=== PATIENT | male | born 1975 | race Caucasian/White ===

== ENCOUNTER 2017-06-01 12:10 | Inpatient (IN) | payer SELFPAY ==
[~2017-06-01] VITALS: Ht 182.9 cm; Wt 145.0 kg
[2017-06-01] VITALS (7 sets, daily range): BP systolic 145–175; BP diastolic 76–80; PULSE 95–118; RESP 18–24; TEMP 98.3–98.7; O2SAT 97–99
--- NOTE | 2017-06-01 12:25 | PD ---
Physical Exam Date Seen by Provider: Jun 01, 2017 Time Seen by Provider: 12:17 Narrative 42-year-old male recently moved here 3 Weeks ago for a while with partially [address] Patient has had gradually worsening bilateral lower extremity pain and swelling as well as increased shortness of breath. Patient is currently been taking Lasix 40 mg twice a day for the past several days without improvement. She has history of 2 blood clots in the past 3 years, both treated for 6 months with Xeralto. Patient denies chest pain, but is having clear productive cough. Patient is worse at night with orthopnea. Patient denies fever, chills, nausea, vomiting, heartburn. No previous history of cardiac issues in the past. Vital signs are reviewed. Patient is awaiting bed placement. Data Data Last Documented VS Vital Signs Date Time Temp Pulse Resp B/P (MAP) Pulse Ox O2 Delivery O2 Flow Rate FiO2 06/01/17 12:12 98.5 118 24 175/80 (111) 99 Room Air [facility] Medical Record Reviewed: Yes Supervised Visit with EMORY: Yes Condition: Stable Nathaniel Cortes Jun 01, 2017 12:25
[2017-06-01] MEDS ORDERED: FUROSEMIDE 40 MG/4 ML VIAL IV PUSH ONE (12:45)
[2017-06-01 13:04] LABS: AUTOMATED NEUTROPHIL # 5.1 TH/MM3 (1.8-7.7); BASOPHIL # 0.1 TH/MM3 (0-0.2); BASOPHIL % 0.7 % (0.0-2.0); EOSINOPHIL # 0.3 TH/MM3 (0-0.4); EOSINOPHIL % 3.5 % (0.0-4.0); HEMATOCRIT 25.7 % (39.0-51.0); HEMO FLAGS DIFF FINAL; LYMPH % 19.4 % (9.0-44.0); LYMPHOCYTE # 1.5 TH/MM3 (1.0-4.8); MEAN CELL VOLUME 59.9 FL (80.0-100.0); MEAN CORPUSCULAR HEMOGLOBIN 17.7 PG (27.0-34.0); NEUT % 67.4 % (16.0-70.0); PLATELET COUNT 310 TH/MM3 (150-450); RED BLOOD COUNT 4.29 MIL/MM3 (4.50-5.90); RED CELL DISTRIBUTION WIDTH 22.1 % (11.6-17.2); WHITE BLOOD COUNT 7.5 TH/MM3 (4.0-11.0)
[2017-06-01 13:07] LABS: APTT (PATIENT) 25.7 SEC (24.3-30.1); PROTHROMBIN TIME - PATIENT 11.3 SEC (9.8-11.6)
[2017-06-01 13:08] LABS: MEAN CORPUSCULAR HGB CONC 29.5 % (32.0-36.0)
[2017-06-01 13:16] LABS: ALT (GPT) 41 U/L (12-78); ANION GAP 7 MEQ/L (5-15); AST (GOT) 40 U/L (15-37); BICARBONATE 24.3 MEQ/L (21.0-32.0); BLOOD UREA NITROGEN 7 MG/DL (7-18); CHLORIDE 105 MEQ/L (98-107); GLOMERULAR FILTRATION RATE 92 ML/MIN (>89); MAGNESIUM 2.5 MG/DL (1.5-2.5); POTASSIUM 3.6 MEQ/L (3.5-5.1); SODIUM (NA) 136 MEQ/L (136-145)
[2017-06-01 13:21] LABS: ALKALINE PHOSPHATASE 97 U/L (45-117); TOTAL BILIRUBIN ADULT 0.8 MG/DL (0.2-1.0)
[2017-06-01 13:22] LABS: CREATINE KINASE 84 U/L (39-308)
--- NOTE | 2017-06-01 13:42 | RADRPT ---
EXAM DATE/TIME: 06/01/2017 12:47 [facility] COMPARISON: No previous studies available for comparison. INDICATIONS : Swelling bilateral legs. MEDICAL HISTORY : Deep venous thrombosis. Alcohol abuse. Bilateral leg swelling. SURGICAL HISTORY : Bariatric surgery. ENCOUNTER: Initial ACUITY: 1 month PAIN SCORE: 1/10 LOCATION: Bilateral legs. TECHNIQUE: Venous ultrasound of the left and right leg was performed from the inguinal ligament to the proximal calf. Real-time, color Doppler and spectral tracing, compression and augmentation techniques were us ed. FINDINGS: RIGHT LEG: There is normal compressibility of the deep venous system from the inguinal region to the proximal ca lf. No echogenic clot is seen in the lumen of the common femoral, femoral, popliteal, and posterior tibial veins. There is a normal response of the venous system to proximal and distal augmentation an d respiration. LEFT LEG: There is normal compressibility of the deep venous system from the inguinal region to the proximal ca lf. No echogenic clot is seen in the lumen of the common femoral, femoral, popliteal, and posterior tibial veins. There is a normal response of the venous system to proximal and distal augmentation an d respiration. There is subcutaneous edema in the lower extremities. CONCLUSION: No DVT is identified within either lower extremity. Navneet Kaur MD on June 01, 2017 at 13:40 Board Certified Radiologist. This report was verified electronically.
--- NOTE | 2017-06-01 13:56 | RADRPT ---
EXAM DATE/TIME: 06/01/2017 13:18 [facility] COMPARISON: No previous studies available for comparison. INDICATIONS : Lower extremity swelling for 1 month with a wet cough for 3 weeks. MEDICAL HISTORY : None. SURGICAL HISTORY : None. ENCOUNTER: Initial ACUITY: 1 month PAIN SCORE: 0/10 LOCATION: Bilateral chest FINDINGS: Portable AP view of the chest demonstrates a normal-sized cardiac silhouette. No effusion, consolidat ion, or pneumothorax is visualized. The bones and soft tissues demonstrate no acute abnormality. Ther e is mild atelectasis at the lung bases. CONCLUSION: Mild atelectasis at the lung bases. Otherwise, no acute cardiopulmonary abnormality is identified. Navneet Kaur MD on June 01, 2017 at 13:51 Board Certified Radiologist. This report was verified electronically.
--- NOTE | 2017-06-01 14:02 | PD ---
HPI Chief Complaint: Edema Time Seen by Provider: 12:25 Travel History International Travel<30 days: No Contact w/Intl Traveler<30days: No Traveled to known affect area: No History of Present Illness HPI 42-year-old male that presents to the ED for evaluation of lower leg edema and orthopnea. Per patient she's had this for about 3 weeks now. Per patient he does have a history of blood clots especially the right leg. He is to be Xarelto for it but has been off of it for about almost a year stop by his doctor. He states that the swelling and the shortness of breath is her about 3 weeks ago when he started to move here. [place] Per patient he did a 14 [address] ride here. Per patient ever since she' s been having more shortness of breath. He always has some lower leg swelling but this is more severe and painful. He denies any chest pain but states that he gets short of breath especially with exertion going up a sterile flights. He does have a chronic history of daily alcohol use as well as smoking. He states that he takes aspirin on occasion. Takes no other medications. He has been taking Lasix for the past 3 days trying to see if this will help with his symptoms. This does not help per patient. He denies any history of CHF or heart disease. No allergies to medication. Per patient the discomfort to the legs is 7 out of 10. She states that even walking a long distance causes a lot of shortness of breath for him. PFSH Past Medical History Medical other: Yes (dvt right leg 2014) Past Surgical History Abdominal Surgery: Yes (bariatric surgery 2001) Social History Alcohol Use: Yes (12-18 bottles a day beer ) Tobacco Use: Yes (1 to 1 and a half pack of cig ) Substance Use: No Allergies-Medications (Allergen,Severity, Reaction): Coded Allergies: No Known Allergies (Unverified , 06/01/17) Reported Meds & Prescriptions Reported Meds & Active Scripts Active No Active Prescriptions or Reported Medications Review of Systems Except as stated in HPI: all other systems reviewed are Neg Physical Exam Narrative GENERAL: SKIN: Warm and dry. HEAD: Atraumatic. Normocephalic. EYES: Pupils equal and round. No scleral icterus. No injection or drainage. ENT: No nasal bleeding or discharge. Mucous membranes pink and moist. Tongue is midline, No uvula deviation. NECK: Trachea midline. No JVD. CARDIOVASCULAR: Regular rate and rhythm. No murmurs, S3, S4. RESPIRATORY: No accessory muscle use. Clear to auscultation. Breath sounds equal bilaterally. GASTROINTESTINAL: Abdomen soft, non-tender, nondistended. Hepatic and splenic margins not palpable. MUSCULOSKELETAL: Extremities without clubbing, cyanosis, or edema. No obvious deformities. Full range of motion of the upper and lower extremities bilaterally. Patient does have 2+ pitting edema in the lower extremities. Right worse than left. Slightly warm to touch with some erythema noted on the right leg. NEUROLOGICAL: Awake and alert. No obvious cranial nerve deficits. Motor grossly within normal limits. Five out of 5 muscle strength in the arms and legs. Normal speech. PSYCHIATRIC: Appropriate mood and affect; insight and judgment normal. Data Data Last Documented VS Vital Signs Date Time Temp Pulse Resp B/P (MAP) Pulse Ox O2 Delivery O2 Flow Rate FiO2 06/01/17 12:37 (111) Room Air 06/01/17 12:33 116 23 99 06/01/17 12:12 98.5 Orders Orders Electrocardiogram (06/01/17 12:25) Complete Blood Count With Diff (06/01/17 12:25) Comprehensive Metabolic Panel (06/01/17 12:25) Ckmb (Isoenzyme) Profile (06/01/17 12:25) Troponin I (06/01/17 12:25) B-Type Natriuretic Peptide (06/01/17 12:25) Prothrombin Time / Inr (Pt) (06/01/17 12:25) Act Partial Throm Time (Ptt) (06/01/17 12:25) Magnesium (Mg) (06/01/17 12:25) Chest, Single Ap (06/01/17 12:25) Iv Access Insert/Monitor (06/01/17 12:25) Ecg Monitoring (06/01/17 12:25) Oximetry (06/01/17 12:25) Ct Pulmonary Angiogram (06/01/17 ) Us Leg Venous Doppler Bilat (06/01/17 ) Furosemide Inj (Lasix Inj) (06/01/17 12:45) Ct Abd/Pel W Iv Contrast(Rout) (06/01/17 ) Type And Screen (06/01/17 14:08) Iohexol 350 Inj (Omnipaque 350 Inj) (06/01/17 14:51) Sodium Chloride 0.9... W/Pantoprazole In (06/01/17 16:13) Sodium Chlorid 0.9% 500 Ml Inj (Ns 500 M (06/01/17 15:30) Admit Order (Ed Use Only) (06/01/17 16:03) Labs Laboratory Tests Test 06/01/17 12:45 White Blood Count 7.5 TH/MM3 Red Blood Count 4.29 MIL/MM3 Hemoglobin 7.6 GM/DL Hematocrit 25.7 % Mean Corpuscular Volume 59.9 FL Mean Corpuscular Hemoglobin 17.7 PG Mean Corpuscular Hemoglobin Concent 29.5 % Red Cell Distribution Width 22.1 % Platelet Count 310 TH/MM3 Mean Platelet Volume 8.7 FL Neutrophils (%) (Auto) 67.4 % Lymphocytes (%) (Auto) 19.4 % Monocytes (%) (Auto) 9.0 % Eosinophils (%) (Auto) 3.5 % Basophils (%) (Auto) 0.7 % Neutrophils # (Auto) 5.1 TH/MM3 Lymphocytes # (Auto) 1.5 TH/MM3 Monocytes # (Auto) 0.7 TH/MM3 Eosinophils # (Auto) 0.3 TH/MM3 Basophils # (Auto) 0.1 TH/MM3 CBC Comment DIFF FINAL Differential Comment Prothrombin Time 11.3 SEC Prothromb Time International Ratio 1.0 RATIO Activated Partial Thromboplast Time 25.7 SEC Blood Urea Nitrogen 7 MG/DL Creatinine 0.90 MG/DL Random Glucose 113 MG/DL Total Protein 7.2 GM/DL Albumin 3.4 GM/DL Calcium Level 8.7 MG/DL Magnesium Level 2.5 MG/DL Alkaline Phosphatase 97 U/L Aspartate Amino Transf (AST/SGOT) 40 U/L Alanine Aminotransferase (ALT/SGPT) 41 U/L Total Bilirubin 0.8 MG/DL Sodium Level 136 MEQ/L Potassium Level 3.6 MEQ/L Chloride Level 105 MEQ/L Carbon Dioxide Level 24.3 MEQ/L Anion Gap 7 MEQ/L Estimat Glomerular Filtration Rate 92 ML/MIN Total Creatine Kinase 84 U/L Troponin I LESS THAN 0.02 NG/ML B-Type Natriuretic Peptide 19 PG/ML MDM Medical Decision Making Medical Screen Exam Complete: Yes Emergency Medical Condition: Yes Medical Record Reviewed: Yes Interpretation(s) CBC & BMP Diagram 06/01/17 12:45 Total Protein 7.2, Albumin 3.4, Calcium Level 8.7, Magnesium Level 2.5, Alkaline Phosphatase 97, Aspartate Amino Transf (AST/SGOT) 40 H, Alanine Aminotransferase (ALT/SGPT) 41, Total Bilirubin 0.8 Last Impressions Chest X-Ray 06/01/17 1225 Signed Impressions: Service Date/Time: Thursday, June 01, 2017 13:18 - CONCLUSION: Mild atelectasis at the lung bases. Otherwise, no acute cardiopulmonary abnormality is identified. Navneet Kaur MD Lower Extremity Ultrasound 06/01/17 0000 Signed Impressions: Service Date/Time: Thursday, June 01, 2017 12:47 - CONCLUSION: No DVT is identified within either lower extremity. Navneet Kaur MD CT Angiography 06/01/17 0000 Signed Impressions: Service Date/Time: Thursday, June 01, 2017 14:23 - CONCLUSION: 1. Suboptimal opacification of pulmonary arteries with no evidence of embolism. 2. Subtle areas of patchy opacification in the right middle lobe and insula with subtle areas of bronchiectasis. These findings are of indeterminate age and could be chronic. Randal Nix MD Differential Diagnosis GI bleed versus shortness of breath versus COPD versus CHF versus pedal edema versus DVT versus PE versus bronchitis versus pneumonia Narrative Course 42-year-old male that presents to the ED for evaluation of shortness of breath with exertion as well as lower leg edema. Patient was properly examined and was found to have signs and symptoms which appear to be more consistent with possible CHF versus DVT. Labs were ordered as well as imaging. Labs and imaging were essentially unremarkable other than for severe anemia. I did a Hemoccult on the patient he was possibly. He does have a history of peptic ulcer disease. He is still somewhat symptomatic and shortness of breath with tachycardia. Case was discussed in my attending Dr. Palomo who recommends admission and further evaluation. Patient was started on Protonix drip. This was discussed with the patient and agrees with plan. Patient will be admitted to the resident team after I spoke with Dr. Lynne who agrees to admission. [facility] Point of Care Internal Pos. & Neg. Controls: Passed Fecal Specimen Occult Blood: Positive Sepsis Criteria SIRS Criteria (2 or more): Heart rate over 90 Diagnosis Primary Impression: GI bleed Qualified Codes: K92.2 - Gastrointestinal hemorrhage, unspecified Additional Impressions: Anemia Qualified Codes: D64.9 - Anemia, unspecified Pedal edema Shortness of breath on exertion Admitting Information Admitting Physician Requests: Admit Scripts No Active Prescriptions or Reported Meds Condition: Yaya Vuong Jun 01, 2017 14:02
[2017-06-01] MEDS ORDERED: IOHEXOL 350 MG/ML 10 ML VIAL (for RAD DIAG) IV PUSH ONE (14:51)
--- NOTE | 2017-06-01 14:59 | RADRPT ---
EXAM DATE/TIME: 06/01/2017 14:23 [facility] COMPARISON: No previous studies available for comparison. INDICATIONS : Shortness of breath. IV CONTRAST: 100 cc Omnipaque 350 (iohexol) IV ; Cumulative dose for multiple exams. RADIATION DOSE: 41.34 CTDIvol (mGy) ; Patient body habitus MEDICAL HISTORY : Deep venous thrombosis. SURGICAL HISTORY : None. ENCOUNTER: Initial ACUITY: 1 day PAIN SCALE: 5/10 LOCATION: Bilateral chest TECHNIQUE: Volumetric scanning of the chest was performed using a pulmonary embolism protocol MIP images were re constructed. Using automated exposure control and adjustment of the mA and/or kV according to patien t size, radiation dose was kept as low as reasonably achievable to obtain optimal diagnostic quality images. DICOM format image data is available electronically for review and comparison. Follow-up recommendations for detected pulmonary nodules are based at a minimum on nodule size and pa tient risk factors according to Fleischner Society Guidelines. FINDINGS: PULMONARY ARTERIES: There is suboptimal opacification of the pulmonary arteries. No filling defects are seen in the pulmo nary arteries through the segmental level. LUNGS: There is no consolidation or pneumothorax . There are subtle areas of patchy opacification in the rig ht middle lobe and lingula. There is subtle apparent bronchiectasis. No concerning pulmonary nodule i s visualized. PLEURAE: There is no pleural thickening or pleural effusion. MEDIASTINUM: There is good visualization of the great vessels of the middle mediastinum. No evidence of mediastin al or hilar adenopathy/mass. MUSCULOSKELETAL: Within normal limits for patient age. MISCELLANEOUS: The visualized upper abdominal organs demonstrate no acute abnormality. Postoperative changes are not ed along the stomach. CONCLUSION: 1. Suboptimal opacification of pulmonary arteries with no evidence of embolism. 2. Subtle areas of patchy opacification in the right middle lobe and insula with subtle areas of bron chiectasis. These findings are of indeterminate age and could be chronic. Randal Nix MD on June 01, 2017 at 14:54 Board Certified Radiologist. This report was verified electronically.
--- NOTE | 2017-06-01 15:24 | RADRPT ---
EXAM DATE/TIME: 06/01/2017 14:27 [facility] COMPARISON: No previous studies available for comparison. INDICATIONS : Abdomen swelling; distention, abdomen pain. IV CONTRAST: 100 cc Omnipaque 350 (iohexol) IV ; Cumulative dose for multiple exams. ORAL CONTRAST: No oral contrast ingested. RADIATION DOSE: 35.19 CTDIvol (mGy) MEDICAL HISTORY : Deep venous thrombosis. SURGICAL HISTORY : None. ENCOUNTER: Initial ACUITY: 1 day PAIN SCALE: 5/10 LOCATION: Bilateral abdomen TECHNIQUE: Volumetric scanning of the abdomen and pelvis was performed. Using automated exposure control and ad justment of the mA and/or kV according to patient size, radiation dose was kept as low as reasonably achievable to obtain optimal diagnostic quality images. DICOM format image data is available electro nically for review and comparison. FINDINGS: LOWER LUNGS: The visualized lower lungs are clear. LIVER: Homogeneous density without lesion. There is no dilation of the biliary tree. No calcified gallston es. There is moderate hepatic steatosis. SPLEEN: Normal size without lesion. PANCREAS: Within normal limits. KIDNEYS: Normal in size and shape. There is no mass, stone or hydronephrosis. ADRENAL GLANDS: Within normal limits. VASCULAR: There is no aortic aneurysm. BOWEL/MESENTERY: Postoperative changes are noted involving the stomach with multiple clips and marcelo. There are mult iple loops of nondilated air-containing small bowel several small air-fluid levels. There is no focal inflammatory change or wall thickening. The colon is unremarkable in appearance. There is no ascites . There is no free intraperitoneal air or fluid. ABDOMINAL WALL: Within normal limits. RETROPERITONEUM: There is no lymphadenopathy. BLADDER: No wall thickening or mass. REPRODUCTIVE: Within normal limits. INGUINAL: There is no lymphadenopathy or hernia. MUSCULOSKELETAL: Within normal limits for patient age. CONCLUSION: 1. There is no ascites. 2. Postoperative changes involving the stomach. There is a nonspecific, nonobstructive bowel gas mehran na which may represent an ileus or gastroenteritis. 3. Moderate hepatic steatosis. Randal Nix MD on June 01, 2017 at 15:20 Board Certified Radiologist. This report was verified electronically.
[2017-06-01] MEDS ORDERED: SODIUM CHLORID 0.9% 500 ML INJ 500 ML IV ONE (15:30)
--- NOTE | 2017-06-01 16:43 | HHI.HP ---
HPI Service Family Medicine Primary Care Physician Non-Staff Admission Diagnosis GI bleed with symptomatic anemia, edema, SOB Diagnoses: International Travel<30 Days: No Contact w/Intl Traveler<30days: No Known Affected Area: No History of Present Illness Mr. Viera is a 42 yo M with PMH of PUD with upper GI bleed (11+ years ago), h /o DVT in R leg x2 (1.5 and 3 years ago - was treated for 6 months on Xarelto for each, not anticoagulated currently) who presented to the ED with 1 month history of progressive BLE edema, SOB and cough. Patient states that roughly 1 month ago he began to have BLE swelling and shortly after began to have SOB, worse when laying flat. He began to have a cough with a clear, thick sputum as well. Patient has been inactive recently due to losing his job, GF, and home in [place] and he has mainly been sedentary and drinking 12-18 beers daily. His symptoms worsened after a [address] from [place] to [place], where he and his daughter are temporarily moving in with his sister until he can find a job/ home. Patient states he had Lasix 40mg at home from a very old prescription and tried taking them recently BID but did not see much improvement of his symptoms. He states he has never had an echo done but had multiple CXR's in the past due to pleurisy. Patient denies fevers, chills, CP. In the ED patient was found to be anemic (H/H 7.6/25.7) and Hemoccult positive. Patient states that roughly 11-12 years ago he had an upper GI bleed that lead to hematemesis and had EGD discovering PUD. He had been taking Prilosec daily but has recently been taking it as little as once a week since he no longer has a job and didn't feel he could afford it. Patient also had gastric bypass surgery roughly 15 years ago. He endorses having hemorrhoids. He denies hematemesis, epigastric pain, black/bloody stools. (Loi Lynne MD R1) Review of Systems Constitutional: DENIES: Fever, Chills, Change in appetite Eyes: DENIES: Blurred vision, Diplopia Ears, nose, mouth, throat: COMPLAINS OF: Running Nose (mainly post nasal drip) , DENIES: Throat pain Respiratory: COMPLAINS OF: Cough (with postnasal drip, also chronic cough from smoking), Sputum production (clear), Shortness of breath, DENIES: Wheezing Cardiovascular: COMPLAINS OF: Lower Extremity Edema, Orthopnea, DENIES: Chest pain, Palpitations Gastrointestinal: DENIES: Abdominal pain, Black stools, Bloody stools, Constipation, Diarrhea, Nausea, Vomiting Genitourinary: DENIES: Hematuria, Dysuria Integumentary: DENIES: Rash Hematologic/lymphatic: DENIES: Lymphadenopathy Neurologic: DENIES: Headache Psychiatric: DENIES: Confusion (Loi Lynne MD R1) Past Family Social History Past Medical History PUD - UGI bleed 11-12 years ago DVT in R leg x2 (1.5 and 3 years ago, both treated with 6 month course of Xarelto) Past Surgical History Bariatric surgery 11-12 years ago - gastric bypass [place] teeth removed 23 years ago Reported Medications Reported Meds & Active Scripts Active No Active Prescriptions or Reported Medications (Loi Lynne MD R1) Allergies: Coded Allergies: No Known Allergies (Unverified , 06/01/17) Family History Father - of possible blood clots Mother - HTN Social History In the process of moving to [place], looking for job, a lot of stress after losing job/home/GF in [place]. He and his daughter moving in with sister until he finds a job/home Been inactive for the past several months Alcohol 12-18 beers daily, has had trembling in the past when abstaining Tobacco 1-2 ppd for roughly 20 years No illicit drug use (Loi Lynne MD R1) Physical Exam Vital Signs Vital Signs Date Time Temp Pulse Resp B/P (MAP) Pulse Ox O2 Delivery O2 Flow Rate FiO2 06/01/17 12:37 (111) Room Air 06/01/17 12:33 116 23 99 Room Air 06/01/17 12:12 98.5 118 24 175/80 (111) 99 Room Air Physical Exam GENERAL: This is a well-nourished, well-developed obese patient sitting upright on hospital bed in [facility] SKIN: BLE are erythematous from the knee to ankle. HEAD: Atraumatic. Normocephalic. No temporal or scalp tenderness. EYES: Pupils equal round and reactive. Extraocular motions intact. No scleral icterus. No injection or drainage. ENT: Nose without bleeding, purulent drainage or septal hematoma. Throat without erythema, tonsillar hypertrophy or exudate. Uvula midline. Airway patent. NECK: Trachea midline. No JVD or lymphadenopathy. Supple, nontender, no meningeal signs. CARDIOVASCULAR: Regular rate and rhythm without murmurs, gallops, or rubs. RESPIRATORY: Occasional wheezing appreciated bilaterally. No crackles noted. Good air movement bilaterally GASTROINTESTINAL: Abdomen soft, non-tender, nondistended. No hepato-splenomegaly , or palpable masses. No guarding. MUSCULOSKELETAL: BLE with 1+ pitting edema to level of distal knee. Patient endorses pain with palpation along tibial plateau bilaterally. Calf tenderness appreciated bilaterally. Negative Homans sign bilaterally. NEUROLOGICAL: Awake and alert. Cranial nerves II through XII grossly intact. Motor and sensory grossly within normal limits. Normal speech. Laboratory Laboratory Tests Test 06/01/17 12:45 White Blood Count 7.5 Red Blood Count 4.29 Hemoglobin 7.6 Hematocrit 25.7 Mean Corpuscular Volume 59.9 Mean Corpuscular Hemoglobin 17.7 Mean Corpuscular Hemoglobin Concent 29.5 Red Cell Distribution Width 22.1 Platelet Count 310 Mean Platelet Volume 8.7 Neutrophils (%) (Auto) 67.4 Lymphocytes (%) (Auto) 19.4 Monocytes (%) (Auto) 9.0 Eosinophils (%) (Auto) 3.5 Basophils (%) (Auto) 0.7 Neutrophils # (Auto) 5.1 Lymphocytes # (Auto) 1.5 Monocytes # (Auto) 0.7 Eosinophils # (Auto) 0.3 Basophils # (Auto) 0.1 CBC Comment DIFF FINAL Differential Comment Prothrombin Time 11.3 Prothromb Time International Ratio 1.0 Activated Partial Thromboplast Time 25.7 Blood Urea Nitrogen 7 Creatinine 0.90 Random Glucose 113 Total Protein 7.2 Albumin 3.4 Calcium Level 8.7 Magnesium Level 2.5 Alkaline Phosphatase 97 Aspartate Amino Transf (AST/SGOT) 40 Alanine Aminotransferase (ALT/SGPT) 41 Total Bilirubin 0.8 Sodium Level 136 Potassium Level 3.6 Chloride Level 105 Carbon Dioxide Level 24.3 Anion Gap 7 Estimat Glomerular Filtration Rate 92 Total Creatine Kinase 84 Troponin I LESS THAN 0.02 B-Type Natriuretic Peptide 19 (Loi Lynne MD R1) Result Diagram: 06/01/17 1245 06/01/17 1245 Caprini VTE Risk Assessment Caprini VTE Risk Assessment: Mod/High Risk (score >= 2) VTE Pharm Contraindication: Active bleeding (monet) Caprini Risk Assessment Model Point Value = 1 Point Value = 2 Point Value = 3 Point Value = 5 Age 41-60 Minor surgery BMI > 25 kg/m2 Swollen legs Varicose veins or History of unexplained or recurrent spontaneous Oral contraceptives or hormone replacement Sepsis (< 1 month) Serious lung disease, including pneumonia (< 1 month) Abnormal pulmonary function Acute myocardial infarction Congestive heart failure (< 1 month) History of inflammatory bowel disease Medical patient at bed rest Age 61-74 Arthroscopic surgery Major open surgery (> 45 min) Laparoscopic surgery (> 45 min) Malignancy Confined to bed (> 72 hours) Immobilizing plaster cast Central venous access Age >= 75 History of VTE Family history of VTE Factor V Leiden Prothrombin 32504B Lupus anticoagulant Anticardiolipin antibodies Elevated serum homocysteine Heparin-induced thrombocytopenia Other congenital or acquired thrombophilia Stroke (< 1 month) Elective arthroplasty Hip, pelvis, or leg fracture Acute spinal cord injury (< 1 month) Prophylaxis Regimen Total Risk Factor Score Risk Level Prophylaxis Regimen 0-1 Low Early ambulation 2 Moderate Order ONE of the following: *Sequential Compression Device (SCD) *Heparin 5000 units SQ BID 3-4 Higher Order ONE of the following medications: *Heparin 5000 units SQ TID *Enoxaparin/Lovenox 40 mg SQ daily (WT < 150 kg, CrCl > 30 mL/min) *Enoxaparin/Lovenox 30 mg SQ daily (WT < 150 kg, CrCl > 10-29 mL/min) *Enoxaparin/Lovenox 30 mg SQ BID (WT < 150 kg, CrCl > 30 mL/min) AND/OR *Sequential Compression Device (SCD) 5 or more Highest Order ONE of the following medications: *Heparin 5000 units SQ TID (Preferred with Epidurals) *Enoxaparin/Lovenox 40 mg SQ daily (WT < 150 kg, CrCl > 30 mL/min) *Enoxaparin/Lovenox 30 mg SQ daily (WT < 150 kg, CrCl > 10-29 mL/min) *Enoxaparin/Lovenox 30 mg SQ BID (WT < 150 kg, CrCl > 30 mL/min) AND *Sequential Compression Device (SCD) (Loi Lynne MD R1) Assessment and Plan Assessment and Plan 42 yo M with PMH of PUD with UGI bleed in past, DVT in R leg who is presenting with 1 month history of progressing BLE edema, SOB, cough found to be anemic and Hemoccult positive on admission. GI consulted for anemia and possible GI bleed. Cardiac workup and PE ruleout ongoing Code Status full code Discussed Condition With Dr. Rush (Loi Lynne MD R1) Attending Attestation The patient has been seen and examined. The chart and all resident notes have been reviewed. I agree that inpatient care is appropriate and that a two midnight stay is expected for the reasons documented in the resident history and physical. I have discussed this with the resident and certify the resident s order for inpatient admission. (Hilda Rasheed MD) Problem List: (1) Anemia ICD Codes: D64.9 - Anemia, unspecified Status: Acute Plan: H/H on admission 7.6/25.7, Hemoccult positive Tachycardic on admission 100's-110's, patient stated he runs in the 100's often GI bleed vs side effect of chronic alcohol abuse GI consulted Will trend H/H q6hr, Type and screen ordered. Will consider transfusion if Hbg drops below 7. Treating with Ferrous Sulfate 325mg po BID NPO at midnight to prepare if GI decides to scope (2) SOB (shortness of breath) ICD Codes: R06.02 - Shortness of breath Plan: Patient reported SOB on exertion, progressive orthopnea over previous month. Smoker CHF vs PE vs ACS vs atelectasis vs pneumonia vs URI Wheezing appreciated on exam, CXR on admission showed mild atelectasis at lung bases CT chest on admission showed no evidence of embolism, subtle areas of patchy opacification in RML and insula, subtle areas of bronchiectasis of indeterminate age Lower extremity ultrasounds showed no DVT in either leg EKG on admission showed sinus tachycardia. Troponin >0.02 Echo ordered, Sputum culture/gram stain pending, will trend troponin x1 Lasix 40mg IV BID Albuterol nebs q4hr PRN, Prednisone 40mg po daily for wheezing Incentive spirometry, Acapella ordered Mucinex, Tessalon pearls ordered for cough (3) Bilateral lower extremity edema ICD Codes: R60.0 - Localized edema Plan: Venous stasis vs new onset CHF vs PE Unlikely PE as edema is bilateral, see SOB workup as above No leukocytosis or signs of cellulitis that would require antibiotics at this time (4) GI bleed ICD Codes: K92.2 - Gastrointestinal hemorrhage, unspecified Status: Acute Plan: Hemoccult positive on admission Known history of PUD with decreased compliance of Prilosec CT abdomen showed bowel gas pattern possibly representing an ileus or gastroenteritis, moderate hepatic steatosis Pantoprazole drip See anemia plan above (5) History of DVT of lower extremity ICD Codes: Z86.718 - Personal history of other venous thrombosis and embolism Plan: Known history of DVT in the past (1.5 and 3 years ago) Was treated with Xarelto for 6 months duration both times Not currently on any anticoagulation Fibrinogen, PTT, PT/INR ordered Will not anticoagulate now as patient is having an active bleed (6) Cough ICD Codes: R05 - Cough Plan: See SOB plan above (7) Alcohol abuse ICD Codes: F10.10 - Alcohol abuse, uncomplicated Plan: 12-18 beers per day History of trembles after 2 days of abstinence in the past on CIWA protocol Giving Thiamine, Folic acid, multivitamin (8) FEN Plan: Diet: NPO at midnight GI Prophylaxis: Pantoprazole DVT prophylaxis: SCDs PRN meds: Clonidine 0.1mg po q6hr PRN for SBP >180, DBP > 100 Marlyn-Colace BID PRN Zofran 4mg IV q6hr PRN (Loi Lynne MD R1) Physician Certification 2 Midnight Certification Type: Admission for Inpatient Services Order for Inpatient Services The services are ordered in accordance with Medicare regulations or non- Medicare payer requirements, as applicable. In the case of services not specified as inpatient-only, they are appropriately provided as inpatient services in accordance with the 2-midnight benchmark. Estimated LOS (days): 2 days is the estimated time the patient will need to remain in the hospital, assuming treatment plan goals are met and no additional complications. Post-Hospital Plan: Home (Loi Lynen MD R1) Problem Qualifiers (1) Anemia: Qualified Codes: D64.9 - Anemia, unspecified (2) GI bleed: Qualified Codes: K92.2 - Gastrointestinal hemorrhage, unspecified Loi Lynne MD R1 Jun 01, 2017 16:43 Hilda Rasheed MD Jun 02, 2017 16:56
[2017-06-01] MEDS: PANTOPRAZOLE INJ 80 MG in SODIUM CHLORIDE 0.9% INJ 100 ML IV SCH (16:59)
[2017-06-01] MEDS ORDERED: ONDANSETRON HCL 4 MG/2 ML VIAL IV PRN (17:00)
[2017-06-01] MEDS ORDERED: LORazepam 1 MG TAB PO PRN (17:30)
[2017-06-01] MEDS ORDERED: LORazepam 2 MG/ML VIAL IV PUSH PRN ×4 (17:30)
[2017-06-01] MEDS ORDERED: HALOPERIDOL LACTATE 5 MG/ML AMP IM PRN (17:30)
[2017-06-01] MEDS ORDERED: ENALAPRILAT 1.25 MG/ML VIAL IV PUSH PRN (17:30)
[2017-06-01] MEDS ORDERED: FLUMAZENIL 0.5 MG/5 ML VIAL IV PUSH PRN (17:30)
[2017-06-01] MEDS ORDERED: ACETAMINOPHEN 500 MG CPLT PO PRN (17:30)
[2017-06-01] MEDS ORDERED: LORazepam 2 MG TAB PO PRN (17:30)
[2017-06-01] MEDS ORDERED: cloNIDine HCL 0.1 MG TAB PO PRN (17:30)
[2017-06-01] MEDS ORDERED: BENZONATATE 100 MG CAP PO PRN (17:30)
[2017-06-01] MEDS ORDERED: RESP: ALBUTEROL 2.5 MG/3 ML NEB (PRN) NEB (17:30)
[2017-06-01] MEDS ORDERED: DOCUSATE SODIUM 50 MG/SENNA 8.6 MG TAB PO PRN (17:30)
[2017-06-01] MEDS: predniSONE 20 MG TAB PO SCH (18:33)
[2017-06-01] MEDS: FUROSEMIDE 40 MG/4 ML VIAL IVP SCH (18:33)
[2017-06-01] MEDS: THIAMINE HCL 100 MG TAB PO SCH (18:34)
[2017-06-01] MEDS: FOLIC ACID 1 MG TAB PO SCH (18:34)
[2017-06-01] MEDS: MULTIVITAMINS/MINERALS THERAPEUTIC TAB PO SCH (18:34)
[2017-06-01] MEDS ORDERED: THIAMINE INJ 100 MG in SODIUM CHLORIDE 0.9% INJ 100 ML IV SCH (19:00)
[2017-06-01] MEDS: NICOTINE 14 MG/24 HR PATCH T-DERMAL SCH (20:00)
[2017-06-01 20:17] LABS: HEMATOCRIT 25.9 % (39.0-51.0); REVIEW FLAG FINAL
[2017-06-01 20:28] LABS: MAGNESIUM 2.4 MG/DL (1.5-2.5)
[2017-06-01 20:29] LABS: ALCOHOL LESS THAN 3 MG/DL (0-5)
[2017-06-01] MEDS: REMOVE OLD PATCH T-DERMAL SCH (21:00)
[2017-06-01] MEDS: guaiFENesin E.R. 600 MG TAB PO SCH (22:19)
[2017-06-01] MEDS: FERROUS SULFATE 325 MG (65 MG ELEMENTAL IRON) TAB PO SCH (22:20)
[2017-06-02] MEDS: PANTOPRAZOLE INJ 80 MG in SODIUM CHLORIDE 0.9% INJ 100 ML IV SCH ×3 (01:58→21:59)
[2017-06-02 02:20] LABS: HEMATOCRIT 24.8 % (39.0-51.0); REVIEW FLAG FINAL
[2017-06-02 03:47] LABS: ANION GAP 5 MEQ/L (5-15); BICARBONATE 26.5 MEQ/L (21.0-32.0); BLOOD UREA NITROGEN 10 MG/DL (7-18); CHLORIDE 108 MEQ/L (98-107); POTASSIUM 4.1 MEQ/L (3.5-5.1); SODIUM (NA) 139 MEQ/L (136-145)
[2017-06-02 03:51] LABS: ALKALINE PHOSPHATASE 90 U/L (45-117); ALT (GPT) 36 U/L (12-78); AST (GOT) 34 U/L (15-37); GLOMERULAR FILTRATION RATE 87 ML/MIN (>89); TOTAL BILIRUBIN ADULT 0.8 MG/DL (0.2-1.0)
[2017-06-02 04:00] VITALS: BP 145/71; PULSE 88; RESP 18; TEMP 98.2; O2SAT 97
[2017-06-02 06:34] LABS: AUTOMATED NEUTROPHIL # 6.2 TH/MM3 (1.8-7.7); BASOPHIL % 0.3 % (0.0-2.0); EOSINOPHIL % 0.2 % (0.0-4.0); HEMATOCRIT 25.3 % (39.0-51.0); HEMO FLAGS DIFF FINAL; LYMPH % 13.3 % (9.0-44.0); MEAN CELL VOLUME 60.7 FL (80.0-100.0); MEAN CORPUSCULAR HEMOGLOBIN 17.7 PG (27.0-34.0); NEUT % 81.2 % (16.0-70.0); PLATELET COUNT 309 TH/MM3 (150-450); RED BLOOD COUNT 4.17 MIL/MM3 (4.50-5.90); WHITE BLOOD COUNT 7.7 TH/MM3 (4.0-11.0)
[2017-06-02 07:02] LABS: MEAN CORPUSCULAR HGB CONC 29.2 % (32.0-36.0)
[2017-06-02 08:00] VITALS: BP 138/66; PULSE 85; PULSE 91; RESP 18; TEMP 98.7; O2SAT 95
[2017-06-02 08:21] LABS: HEMATOCRIT 25.2 % (39.0-51.0); REVIEW FLAG FINAL
[2017-06-02 08:27] VITALS: O2SAT 99
[2017-06-02] MEDS: THIAMINE HCL 100 MG TAB PO SCH (09:00)
[2017-06-02] MEDS: NICOTINE 14 MG/24 HR PATCH T-DERMAL SCH (09:00)
[2017-06-02] MEDS: MULTIVITAMINS/MINERALS THERAPEUTIC TAB PO SCH (09:58)
[2017-06-02] MEDS: guaiFENesin E.R. 600 MG TAB PO SCH ×2 (09:58→21:58)
[2017-06-02] MEDS: FUROSEMIDE 40 MG/4 ML VIAL IVP SCH ×2 (09:58→17:31)
[2017-06-02] MEDS: predniSONE 20 MG TAB PO SCH (09:59)
[2017-06-02] MEDS: FERROUS SULFATE 325 MG (65 MG ELEMENTAL IRON) TAB PO SCH ×2 (09:59→21:58)
[2017-06-02] MEDS: FOLIC ACID 1 MG TAB PO SCH (09:59)
--- NOTE | 2017-06-02 11:02 | HHI.FPPN ---
Subjective Subjective Patient seen and examined with the resident team. Case reviewed and discussed Please refer to resident H&P for further details regarding HPI, ROS, PMH, SurgHx , SocHx and FH In summary, patient is a 42yoM presenting with LE edema and shortness of breath. Patient has recently moved to the area from [place]. Patient has a known history of DVT x 2 as well as PUD with GIB. He continues to have regular alcohol use. Denies chest pain. Patient seen in his hospital bed, reports black stools overnight Hospital Objective Objective Last Impressions Chest X-Ray 06/01/17 1225 Signed Impressions: Service Date/Time: Thursday, June 01, 2017 13:18 - CONCLUSION: Mild atelectasis at the lung bases. Otherwise, no acute cardiopulmonary abnormality is identified. Navneet Kaur MD Lower Extremity Ultrasound 06/01/17 0000 Signed Impressions: Service Date/Time: Thursday, June 01, 2017 12:47 - CONCLUSION: No DVT is identified within either lower extremity. Navneet Kaur MD CT Angiography 06/01/17 0000 Signed Impressions: Service Date/Time: Thursday, June 01, 2017 14:23 - CONCLUSION: 1. Suboptimal opacification of pulmonary arteries with no evidence of embolism. 2. Subtle areas of patchy opacification in the right middle lobe and insula with subtle areas of bronchiectasis. These findings are of indeterminate age and could be chronic. Randal Nix MD Abdomen/Pelvis CT 06/01/17 0000 Signed Impressions: Service Date/Time: Thursday, June 01, 2017 14:27 - CONCLUSION: 1. There is no ascites. 2. Postoperative changes involving the stomach. There is a nonspecific, nonobstructive bowel gas pattern which may represent an ileus or gastroenteritis. 3. Moderate hepatic steatosis. Randal Nix MD Laboratory Tests - Abnormals Test 06/01/17 12:45 06/01/17 19:45 06/01/17 19:55 06/02/17 01:59 Red Blood Count 4.29 MIL/MM3 Hemoglobin 7.6 GM/DL 7.3 GM/DL 7.4 GM/DL Hematocrit 25.7 % 25.9 % 24.8 % Mean Corpuscular Volume 59.9 FL Mean Corpuscular Hemoglobin 17.7 PG Mean Corpuscular Hemoglobin Concent 29.5 % Red Cell Distribution Width 22.1 % Monocytes (%) (Auto) 9.0 % Random Glucose 113 MG/DL 112 MG/DL Aspartate Amino Transf (AST/SGOT) 40 U/L Troponin I LESS THAN 0.02 NG/ML LESS THAN 0.02 NG/ML Fibrinogen 392 mg/dL Chloride Level 108 MEQ/L Estimat Glomerular Filtration Rate 87 ML/MIN Test 06/02/17 06:00 06/02/17 07:49 Red Blood Count 4.17 MIL/MM3 Hemoglobin 7.4 GM/DL 7.3 GM/DL Hematocrit 25.3 % 25.2 % Mean Corpuscular Volume 60.7 FL Mean Corpuscular Hemoglobin 17.7 PG Mean Corpuscular Hemoglobin Concent 29.2 % Red Cell Distribution Width 23.0 % Neutrophils (%) (Auto) 81.2 % Vital Signs 06/01/17 06/01/17 06/01/17 06/01/17 12:12 12:33 12:37 17:31 Temp 98.5 Pulse 118 116 Resp 23 B/P (MAP) 175/80 (111) (111) Pulse Ox 99 99 98 O2 Delivery Room Air Room Air Room Air FiO2 21 06/01/17 06/01/17 06/01/17 06/01/17 18:26 18:44 18:51 20:00 Temp 98.7 Pulse 95 98 Resp 20 B/P (MAP) 156/79 (104) Pulse Ox 97 O2 Delivery Room Air 06/01/17 06/01/17 06/02/17 06/02/17 20:00 20:01 00:00 04:00 Temp 98.3 Pulse 103 108 Resp 18 B/P (MAP) 149/76 (100) Pulse Ox 99 O2 Delivery Room Air Room Air 06/02/17 06/02/17 06/02/17 06/02/17 04:00 07:00 08:00 08:00 Temp 98.2 98.7 Pulse 88 85 91 Resp 18 18 B/P (MAP) 145/71 (95) 138/66 (90) Pulse Ox 97 95 O2 Delivery Room Air 06/02/17 08:27 Pulse Ox 99 FiO2 21 Physical exam GENERAL: Obese male, resting in bed, NAD SKIN: Warm and dry. No rashes, lesions HEAD: Normocephalic. AT EYES: No scleral icterus. No injection or drainage. ENT: OP clear. MMM NECK: Supple, trachea midline. No JVD or lymphadenopathy. CARDIOVASCULAR: Regular rate and rhythm without murmurs, gallops, or rubs. RESPIRATORY: Breath sounds equal and clear to auscultation bilaterally. No accessory muscle use. GASTROINTESTINAL: Abdomen soft, obese, non-tender, nondistended. Normal active BS. Hepatic edge palpable 2cm below costal margin. MUSCULOSKELETAL: No cyanosis, 1+ symmetric pitting LE edema to above ankles. BACK: Nontender without obvious deformity. No CVA tenderness. NEURO: Awake and alert. Normal speech. CN grossly intact. Assessment Assessment 42yoM admitted with: Acute blood loss anemia, symptomatic GIB Alcohol use Shortness of breath LE edema Hx PUD Recurrent DVT Acute decompensated heart failure Tobacco dependence Obesity PLAN PLAN GI Consult Protonix Transfuse prbcs [facility] protocol 2D echo Iron studies Peripheral smear Serial hgb Counseled regarding smoking cessation Hypercoagulable manual winder for bleeding Strict Is/Os Diuresis with lasix Patient seen and examined with the resident team. Case reviewed and discussed Agree with plan of care as discussed with me and documented in the resident note. Hilda Rasheed MD Jun 02, 2017 11:02
[2017-06-02 12:00] VITALS: BP 144/74; PULSE 93; RESP 18; TEMP 98.6; O2SAT 98
--- NOTE | 2017-06-02 12:52 | PD.CONS ---
HPI History of Present Illness This is a 42 year old male who presented to the ED with c/o worsening BLE x 1 month, shortness of breath, and productive cough (clear sputum). Patient reports increased SOB while lying flat. PMH significant for PUD with UGI and h/ o DVT in R leg x 2. Patient does report drinking 12-18 beers daily. GI was consulted due to anemia and Hemoccult positive stools. In the ED patient HH was 7.6/25.7. Patient states that he had UGI with hematemesis about 11 years ago. EGD at this time showed PUD, with bleeding gastric ulcer. Patient has been taking Prilosec daily up until past 1-2 months in which he has not been taking the Prilosec due to inability to afford this medication due to loss of job. Patient denies abdominal pain. Does not have any nausea or vomiting. Denies hematochezia or melena prior to admission, but does state he noted his stool was dark today. Patient reports he does have hemorrhoids, denies blood on wipe. History of gastric bypass surgery 15 years ago. (Luz Mckenzie) PFSH Past Medical History PUD with UGIB, 11 years ago DVT in R leg x 2 (1.5 and 3 years ago, treated with 6 month course of Xarelto) Past Surgical History Bariatric surgery, gastric bypass, 15 years ago [place] teeth removed (Luz Mckenzie) Coded Allergies: No Known Allergies (Unverified , 06/01/17) Medications Current Medications Medications (Trade) Dose Ordered Sig/Geean Route PRN Reason Start Time Stop Time Status Last Admin Dose Admin Pantoprazole Sodium 80 mg/ Sodium Chloride 100 ml @ 10 mls/hr Q10H IV 06/01/17 16:13 06/02/17 01:58 Ondansetron HCl (Zofran Inj) 4 mg Q6H PRN IV NAUSEA OR VOMITING 06/01/17 17:00 Furosemide (Lasix Inj) 40 mg BID@,18 IVP 06/01/17 18:00 06/02/17 09:58 Folic Acid (Folate) 1 mg DAILY PO 06/01/17 17:30 06/06/17 17:29 06/02/17 09:59 Thiamine HCl (Vitamin B1) 100 mg DAILY PO 06/01/17 17:30 06/02/17 09:00 Multivitamins/ Minerals Therapeutic (Theragran M Tab) 1 tab DAILY PO 06/01/17 17:30 06/06/17 17:29 06/02/17 09:58 Clonidine (Catapres) 0.1 mg Q6H PRN PO SEE LABEL COMMENTS 06/01/17 17:30 Flumazenil (Romazicon Inj) 0.2 mg Q1M PRN IV PUSH SEE LABEL COMMENTS 06/01/17 17:30 Lorazepam (Ativan) 1 mg Q4H PRN PO CIWA 8 - 10 06/01/17 17:30 Lorazepam (Ativan Inj) 1 mg Q4H PRN IV PUSH CIWA 8 - 10 06/01/17 17:30 Lorazepam (Ativan) 2 mg Q2H PRN PO CIWA 11-14 06/01/17 17:30 Lorazepam (Ativan Inj) 2 mg Q2H PRN IV PUSH CIWA 11-14 06/01/17 17:30 Lorazepam (Ativan Inj) 2 mg Q1H PRN IV PUSH CIWA 15-20 06/01/17 17:30 Lorazepam (Ativan Inj) 2 mg Q15M PRN IV PUSH CIWA > 20 06/01/17 17:30 Haloperidol Lactate (Haldol Inj) 2 mg Q15M PRN IM SEE LABEL COMMENTS 06/01/17 17:30 Nicotine (Habitrol 14 Mg Patch.24 Hr) 1 patch DAILY T-DERMAL 06/01/17 20:00 Miscellaneous Information 1 HS T-DERMAL 06/01/17 21:00 Acetaminophen (Tylenol) 500 mg Q4H PRN PO PAIN 1-10 OR TEMP >100.4F 06/01/17 17:30 06/01/17 22:42 Senna/Docusate Sodium (Marlyn-Colace) 2 tab BID PRN PO CONSTIPATION 06/01/17 17:30 Albuterol Sulfate (Albuterol Neb) 2.5 mg Q4HR NEB PRN NEB SHORTNESS OF BREATH 06/01/17 17:30 Prednisone (Deltasone) 40 mg DAILY PO 06/01/17 17:30 06/02/17 09:59 Ferrous Sulfate (Ferrous Sulfate) 325 mg BID PO 06/01/17 21:00 06/02/17 09:59 Guaifenesin (Mucinex Er) 600 mg BID PO 06/01/17 21:00 06/02/17 09:58 Benzonatate (Tessalon) 100 mg TID PRN PO COUGH 06/01/17 17:30 Family History Father- secondary to possible blood clots Mother-high blood pressure Social History ETOH: 12-18 beers daily Tobacco: 1-2 PPD x 20 years Illicit Drugs: Denies (Luz Mckenzie) Review of Systems Constitutional: COMPLAINS OF: Fatigue, DENIES: Diaphoretic episodes, Fever, Weight gain, Weight loss, Chills, Dizziness, Change in appetite, Night Sweats Endocrine: DENIES: Polydipsia, Polyuria Eyes: DENIES: Blurred vision, Photosensitivity, Double Vision Ears, nose, mouth, throat: DENIES: Hearing loss, Vertigo, Oral lesions, Throat pain, Hoarseness Respiratory: COMPLAINS OF: Cough, Sputum production, Shortness of breath, DENIES: Wheezing, Hemoptysis Cardiovascular: DENIES: Chest pain, Palpitations, Syncope, Lower Extremity Edema, Orthopnea, Claudication Gastrointestinal: DENIES: Abdominal pain, Black stools, Bloody stools, Constipation, Diarrhea, Nausea, Vomiting, Difficulty Swallowing, Anorexia, Odynophagia, Swelling of Abdomen, Heartburn, Hematemesis Genitourinary: DENIES: Urinary frequency, Urinary incontinence, Urgency, Hematuria, Dysuria, Nocturia Musculoskeletal: DENIES: Joint pain, Muscle aches, Stiffness, Joint Swelling, Back pain, Neck pain Integumentary: DENIES: Abnormal pigmentation, Nail changes, Pruritus, Rash, Jaundice Hematologic/lymphatic: DENIES: Bruising, Lymphadenopathy Immunologic/allergic: DENIES: Eczema, Urticaria Neurologic: DENIES: Abnormal gait, Headache, Localized weakness, Paresthesias Psychiatric: DENIES: Anxiety, Confusion, Mood changes, Depression, Agitation, Suicidal Ideation (Luz Mckenzie) GI Exam Vitals I&O Vital Signs Date Time Temp Pulse Resp B/P (MAP) Pulse Ox O2 Delivery O2 Flow Rate FiO2 06/02/17 08:27 99 21 06/02/17 08:00 98.7 91 18 138/66 (90) 95 06/02/17 08:00 85 06/02/17 07:00 Room Air 06/02/17 04:00 98.2 88 18 145/71 (95) 97 06/02/17 04:00 Room Air 06/02/17 00:00 Room Air 06/01/17 20:01 108 06/01/17 20:00 98.3 103 18 149/76 (100) 99 06/01/17 20:00 Room Air 06/01/17 18:51 98 06/01/17 18:44 98.7 95 20 156/79 (104) 97 06/01/17 18:26 06/01/17 17:31 98 21 06/01/17 12:37 (111) Room Air 06/01/17 12:33 116 23 99 Room Air I/O 06/01/17 06/01/17 06/01/17 06/02/17 06/02/17 06/02/17 07:00 15:00 23:00 07:00 15:00 23:00 Intake Total 500 ml 981 ml Output Total 1450 ml 2600 ml Balance -1450 ml 500 ml -1619 ml Intake Oral 860 ml IV Total 500 ml 121 ml Output Urine Total 1450 ml 2600 ml # Voids 2 # Bowel Movements 1 Imaging Last Impressions Chest X-Ray 06/01/17 1225 Signed Impressions: Service Date/Time: Thursday, June 01, 2017 13:18 - CONCLUSION: Mild atelectasis at the lung bases. Otherwise, no acute cardiopulmonary abnormality is identified. Navneet Kaur MD Lower Extremity Ultrasound 06/01/17 0000 Signed Impressions: Service Date/Time: Thursday, June 01, 2017 12:47 - CONCLUSION: No DVT is identified within either lower extremity. Navneet Kaur MD CT Angiography 06/01/17 0000 Signed Impressions: Service Date/Time: Thursday, June 01, 2017 14:23 - CONCLUSION: 1. Suboptimal opacification of pulmonary arteries with no evidence of embolism. 2. Subtle areas of patchy opacification in the right middle lobe and insula with subtle areas of bronchiectasis. These findings are of indeterminate age and could be chronic. Randal Nix MD Abdomen/Pelvis CT 06/01/17 0000 Signed Impressions: Service Date/Time: Thursday, June 01, 2017 14:27 - CONCLUSION: 1. There is no ascites. 2. Postoperative changes involving the stomach. There is a nonspecific, nonobstructive bowel gas pattern which may represent an ileus or gastroenteritis. 3. Moderate hepatic steatosis. Randal Nix MD Laboratory Test 06/01/17 12:45 06/01/17 19:45 06/01/17 19:55 06/02/17 01:59 White Blood Count 7.5 TH/MM3 Red Blood Count 4.29 MIL/MM3 Hemoglobin 7.6 GM/DL 7.3 GM/DL 7.4 GM/DL Hematocrit 25.7 % 25.9 % 24.8 % Mean Corpuscular Volume 59.9 FL Mean Corpuscular Hemoglobin 17.7 PG Mean Corpuscular Hemoglobin Concent 29.5 % Red Cell Distribution Width 22.1 % Platelet Count 310 TH/MM3 Mean Platelet Volume 8.7 FL Neutrophils (%) (Auto) 67.4 % Lymphocytes (%) (Auto) 19.4 % Monocytes (%) (Auto) 9.0 % Eosinophils (%) (Auto) 3.5 % Basophils (%) (Auto) 0.7 % Neutrophils # (Auto) 5.1 TH/MM3 Lymphocytes # (Auto) 1.5 TH/MM3 Monocytes # (Auto) 0.7 TH/MM3 Eosinophils # (Auto) 0.3 TH/MM3 Basophils # (Auto) 0.1 TH/MM3 CBC Comment DIFF FINAL Differential Comment Prothrombin Time 11.3 SEC Prothromb Time International Ratio 1.0 RATIO Activated Partial Thromboplast Time 25.7 SEC Blood Urea Nitrogen 7 MG/DL 10 MG/DL Creatinine 0.90 MG/DL 0.94 MG/DL Random Glucose 113 MG/DL 112 MG/DL Total Protein 7.2 GM/DL 7.4 GM/DL Albumin 3.4 GM/DL 3.4 GM/DL Calcium Level 8.7 MG/DL 8.6 MG/DL Magnesium Level 2.5 MG/DL 2.4 MG/DL Alkaline Phosphatase 97 U/L 90 U/L Aspartate Amino Transf (AST/SGOT) 40 U/L 34 U/L Alanine Aminotransferase (ALT/SGPT) 41 U/L 36 U/L Total Bilirubin 0.8 MG/DL 0.8 MG/DL Sodium Level 136 MEQ/L 139 MEQ/L Potassium Level 3.6 MEQ/L 4.1 MEQ/L Chloride Level 105 MEQ/L 108 MEQ/L Carbon Dioxide Level 24.3 MEQ/L 26.5 MEQ/L Anion Gap 7 MEQ/L 5 MEQ/L Estimat Glomerular Filtration Rate 92 ML/MIN 87 ML/MIN Total Creatine Kinase 84 U/L Troponin I LESS THAN 0.02 NG/ML LESS THAN 0.02 NG/ML B-Type Natriuretic Peptide 19 PG/ML Fibrinogen 392 mg/dL Phosphorus Level 2.5 MG/DL Ethyl Alcohol Level LESS THAN 3 MG/DL Urine Opiates Screen NEG Urine Barbiturates Screen NEG Urine Amphetamines Screen NEG Urine Benzodiazepines Screen NEG Urine Cocaine Screen NEG Urine Cannabinoids Screen NEG Test 06/02/17 06:00 06/02/17 07:49 White Blood Count 7.7 TH/MM3 Red Blood Count 4.17 MIL/MM3 Hemoglobin 7.4 GM/DL 7.3 GM/DL Hematocrit 25.3 % 25.2 % Mean Corpuscular Volume 60.7 FL Mean Corpuscular Hemoglobin 17.7 PG Mean Corpuscular Hemoglobin Concent 29.2 % Red Cell Distribution Width 23.0 % Platelet Count 309 TH/MM3 Mean Platelet Volume 8.6 FL Neutrophils (%) (Auto) 81.2 % Lymphocytes (%) (Auto) 13.3 % Monocytes (%) (Auto) 5.0 % Eosinophils (%) (Auto) 0.2 % Basophils (%) (Auto) 0.3 % Neutrophils # (Auto) 6.2 TH/MM3 Lymphocytes # (Auto) 1.0 TH/MM3 Monocytes # (Auto) 0.4 TH/MM3 Eosinophils # (Auto) 0.0 TH/MM3 Basophils # (Auto) 0.0 TH/MM3 CBC Comment DIFF FINAL Differential Comment Physical Examination HEENT: Normocephalic; atraumatic; no jaundice. NECK: Neck is supple. CHEST: + wheezing bilaterally CARDIAC: RRR with no murmur gallop or rubs. ABDOMEN: Soft, obese, nondistended, nontender; no hepatosplenomegaly; bowel sounds are present in all four quadrants. EXTREMITIES: 1 + pitting edema at BLE. SKIN: Normal; no rash; no jaundice. CANVAS MARKER: No focal deficits; alert and oriented x 3 (Luz Mckenzie) Assessment and Plan Plan ASSESSMENT: - GI Bleed, Hemoccult positive stools. on admission 7.6/25.7. Heavy alcohol use. History of PUD with GIB 11 years ago, noncompliance of Prilosec medication x 1-2 months. No active bleeding noted. Abdomen CT ()--1. There is no ascites. 2. Postoperative changes involving the stomach. There is a nonspecific, nonobstructive bowel gas pattern which may represent an ileus or gastroenteritis. 3. Moderate hepatic steatosis. - Anemia, as above. HH 7.3/25.2 (06/02) - Shortness of breath, + heavy tobacco use. CXR (06/01/17)--Mild atelectasis at the lung bases. Otherwise, no acute cardiopulmonary abnormality is identified CT Angiography (06/01/17)--1. Suboptimal opacification of pulmonary arteries with no evidence of embolism. 2. Subtle areas of patchy opacification in the right middle lobe and insula with subtle areas of bronchiectasis. These findings are of indeterminate age and could be chronic. - Lower extremity edema, bilateral. LE US negative for DVT. PLAN: - EGD on Saturday - Obtain consents - NPO at [place] - Continue Pantoprazole gtt - Monitor HH, transfuse as necessary - Supportive care - Further recommendations to follow based on results of above Patient seen and examined by Dr. Donohue and myself and this note is written on his behalf. (Luz Mckenzie) Physician Comments Patient seen and examined Agree with above Continue with current supportive care And monitor labs Plan for an EGD tomorrow (Marcio Donohue MD) Luz Mckenzie Jun 02, 2017 12:52 Marcio Donohue MD Jun 02, 2017 23:18
--- NOTE | 2017-06-02 13:06 | EKG ---
Date Performed: 06/01/2017 Time Performed: 12:52:40 PTAGE: 42 years EKG: SINUS TACHYCARDIA ABNORMAL RHYTHM ECG NO PREVIOUS TRACING DOCTOR: Edwardo Cool Interpretating Date/Time 06/02/2017 13:04:39
--- NOTE | 2017-06-02 14:50 | ECHRPT ---
Indication: heart failure CONCLUSIONS The left ventricular systolic function is normal with an estimated ejection fraction in the range of 55-60%. Normal left ventricular size. Wall thickness is normal. [id number] mitral valve regurgitation. There is mild tricuspid valve regurgitation. The estimated pulmonary arterial pressure is 35.4 mmHg. BP: / HR: Rhythm: MEASUREMENTS (Male / Female) Normal Values Technical Quality: 2D ECHO LV Diastolic Diameter PLAX 5.5 cm 4.2 - 5.9 / 3.9 - 5.3 cm LV Systolic Diameter PLAX 4.1 cm IVS Diastolic Thickness 0.9 cm 0.6 - 1.0 / 0.6 - 0.9 cm LVPW Diastolic Thickness 1.0 cm 0.6 - 1.0 / 0.6 - 0.9 cm LV Relative Wall Thickness 0.3 RV Internal Dim ED PLAX 4.5 cm M-MODE Aortic Root Diameter MM 3.3 cm LA Systolic Diameter MM 4.2 cm LA Ao Ratio MM 1.3 AV Cusp Separation MM 2.9 cm DOPPLER Mitral E Point Velocity 43.4 cm/s Mitral A Point Velocity 65.2 cm/s Mitral E to A Ratio 0.7 LV E' Lateral Velocity 12.2 cm/s Mitral E to LV E' Lateral Ratio 3.6 LV E' Septal Velocity 8.6 cm/s Mitral E to LV E' Septal Ratio 5.1 TR Peak Velocity 252.0 cm/s TR Peak Gradient 25.4 mmHg Right Atrial Pressure 10.0 mmHg Pulmonary Artery Systolic Pressu 35.4 mmHg Right Ventricular Systolic Press 35.4 mmHg FINDINGS LEFT VENTRICLE Doppler parameters are consistent with impaired left ventricular relaxtion (grade 1 diastolic dysfun ction). The left ventricular systolic function is normal with an estimated ejection fraction in the range of 55-60%. Normal left ventricular size. Wall thickness is normal. RIGHT VENTRICLE Normal right ventricular size and systolic function. LEFT ATRIUM The left atrial size is normal. RIGHT ATRIUM The right atrial size is normal. ATRIAL SEPTUM Normal atrial septal thickness without atrial level shunting by limited color doppler interrogation. AORTA The aortic root and proximal ascending aorta are normal in size on limited imaging. MITRAL VALVE Structurally normal mitral valve. [id number] mitral valve regurgitation. AORTIC VALVE Trileaflet aortic valve. No aortic valve stenosis or regurgitation. TRICUSPID VALVE Structurally normal tricuspid valve. There is mild tricuspid valve regurgitation. The estimated pulmonary arterial pressure is 35.4 mmHg. PULMONARY VALVE No pulmonary valve regurgitation or stenosis. VESSELS The inferior vena cava is normal in size. Parmjit Wright MD (Electronically Signed) Final Date:02 June 2017 14:49
[2017-06-02 16:00] VITALS: BP 129/69; PULSE 105; RESP 18; TEMP 98.7; O2SAT 97
[2017-06-02 20:00] VITALS: BP 164/78; PULSE 106; PULSE 107; RESP 18; TEMP 98.1; O2SAT 98
[2017-06-02] MEDS: REMOVE OLD PATCH T-DERMAL SCH (21:00)
[2017-06-03] VITALS (9 sets, daily range): BP systolic 123–161; BP diastolic 67–94; PULSE 87–99; RESP 16–20; TEMP 97.5–98.6; O2SAT 97–100
[2017-06-03] MEDS: PANTOPRAZOLE INJ 80 MG in SODIUM CHLORIDE 0.9% INJ 100 ML IV SCH ×2 (04:15→17:39)
[2017-06-03] MEDS: NICOTINE 14 MG/24 HR PATCH T-DERMAL SCH (09:00)
[2017-06-03 09:41] LABS: HEMATOCRIT 27.2 % (39.0-51.0)
[2017-06-03 09:51] LABS: REVIEW FLAG FINAL
--- NOTE | 2017-06-03 10:19 | GIPROC ---
[facility] [address] [facility]. [facility], [id number] EGD PROCEDURE REPORT EXAM DATE: 06/03/2017 PATIENT NAME: Gopi Viera MR #: [id number] BIRTHDATE: 1975 ATTENDING: Viry Melendez MD ORDER #: [id number] DYNAMOMETER MECHANIC: Kareem Petersen and Steffi Nelson STATUS: inpatient INDICATIONS: The patient is a 42 yr old male here for an EGD due to PROCEDURE PERFORMED: EGD w/ biopsy MEDICATIONS: None and Per Anesthesia. TOPICAL ANESTHETIC: none CONSENT: The patient understands the risks and benefits of the procedure and understands that these risks include, but are not limited to: sedation, allergic reaction, infection, perforation and/or bleeding. Alternative means of evaluation and treatment include, among others: physical exam, x-rays, and/or surgical intervention. The patient elects to proceed with this endoscopic procedure. medical equipment was checked for proper function. Hand hygiene and appropriate measures for infection prevention was taken. After the risks, benefits and alternatives of the procedure were thoroughly explained, Informed consent was verified, confirmed and timeout was successfully executed by the treatment team. The patient was anesthetized with topical anesthesia and the Pentax [id number] and [id number] endoscope was introduced through the mouth and advanced to the second portion of the duodenum. Retroflexed views revealed no abnormalities The gastroscope was then slowly withdrawn and removed. Anatomy consistent with gastrectomy Nodule at the surgical anastomosis biopsy was done No ulcers seen. ADVERSE EVENTS: There were no complications. IMPRESSIONS: 1. Anatomy consistent with gastrectomy Nodule at the surgical anastomosis biopsy was done No ulcers seen 2. Retroflexed views revealed no abnormalities RECOMMENDATIONS: 1. Await biopsy results. Biopsy results will not be ready for 7-10 days. If you don't hear from us in two weeks, call our office for biopsy results. 2. Anemia could be related to gastrectomy Consider colonoscopy for the anemia PATIENT CONDITION: stable DISPOSITION: Inpatient REPEAT EXAM: Return as needed for EGD Viry Melendez MD eSigned: Viry Melendez MD 06/03/2017 10:19 AM cc:
[2017-06-03] MEDS ORDERED: MIDAZOLAM HCL 2 MG/2 ML VIAL IV ONE (10:26)
[2017-06-03] MEDS ORDERED: PROPOFOL 200 MG/20 ML AMP IV ONE (10:26)
--- NOTE | 2017-06-03 10:32 | HHI.GIFU ---
Subjective Remarks Patient laying comfortably in bed, no shortness of breath, no more signs of any GI bleeding, still anemic Objective Vitals I&O Vital Signs Date Time Temp Pulse Resp B/P (MAP) Pulse Ox O2 Delivery O2 Flow Rate FiO2 06/03/17 08:00 97.8 89 19 142/76 (98) 97 06/03/17 04:00 98.5 87 18 123/74 (90) 98 06/03/17 00:00 Room Air 06/03/17 00:00 97.5 99 18 145/67 (93) 99 06/02/17 20:00 98.1 107 18 164/78 (106) 98 06/02/17 20:00 Room Air 06/02/17 20:00 106 06/02/17 16:00 98.7 105 18 129/69 (89) 97 06/02/17 12:00 98.6 93 18 144/74 (97) 98 I/O 06/02/17 06/02/17 06/02/17 06/03/17 06/03/17 06/03/17 07:00 15:00 23:00 07:00 15:00 23:00 Intake Total 981 ml 240 ml 841 ml 21 ml Output Total 2600 ml 2550 ml Balance -1619 ml 240 ml -1709 ml 21 ml Intake Oral 860 ml 240 ml 720 ml IV Total 121 ml 121 ml 21 ml Output Urine Total 2600 ml 2550 ml # Bowel Movements 1 1 Laboratory Laboratory Tests Test 06/03/17 09:10 Hemoglobin 7.8 Hematocrit 27.2 Date/Time Source Procedure Growth Status 06/03/17 07:50 Sputum Expectorated Sputum Gram Stain Pending Received 06/03/17 07:50 Sputum Expectorated Sputum Sputum Culture Pending Received Physical Exam HEENT: Pupils round and reactive to light; normocephalic; atraumatic; no jaundice. Throat is clear. Obese NECK: Neck is supple, no JVD, no lymphadenopathy. CHEST: Chest is clear to auscultation and percussion. CARDIAC: Regular rate and rhythm with no murmur gallop or rubs. ABDOMEN: Soft, nondistended, nontender; no hepatosplenomegaly; bowel sounds are present in all four quadrants. Surgical scar on abdomen EXTREMITIES: No clubbing, cyanosis, or edema. SKIN: Normal; no rash; no jaundice. MEDICAL TERMINOLOGIST: No focal deficits; alert and oriented times three. Assessment and Plan Plan ASSESSMENT: - GI Bleed, Hemoccult positive stools. HH on admission 7.6.7. Heavy alcohol use. History of PUD with GIB 11 years ago, noncompliance of Prilosec medication x 1-2 months. No active bleeding noted. Abdomen CT ()--1. There is no ascites. 2. Postoperative changes involving the stomach. There is a nonspecific, nonobstructive bowel gas pattern which may represent an ileus or gastroenteritis. 3. Moderate hepatic steatosis. - Anemia, as above. HH 7.3/.2 (06/02) - Shortness of breath, + heavy tobacco use. CXR (06/01/17)--Mild atelectasis at the lung bases. Otherwise, no acute cardiopulmonary abnormality is identified CT Angiography (06/01/17)--1. Suboptimal opacification of pulmonary arteries with no evidence of embolism. 2. Subtle areas of patchy opacification in the right middle lobe and insula with subtle areas of bronchiectasis. These findings are of indeterminate age and could be chronic. - Lower extremity edema, bilateral. LE US negative for DVT. 06/03/2017 no sign of DVT, no sign of active bleeding, EGD showed anatomy consistent with previous partial gastrectomy there was a nodule at the GE junction biopsy was done with the postsurgical changes, no other abnormality seen to explain the anemia PLAN: -Colonoscopy in a.m. - Obtain consents - Start prep then NPO at [place] - Continue Pantoprazole gtt - Monitor HH, transfuse as necessary - Supportive care - Further recommendations to follow based on results of above Viry Melendez MD Jun 03, 2017 10:32
[2017-06-03] MEDS ORDERED: DO NOT ADM ANY ANTICOAGULANT DRUGS PRN (11:00)
[2017-06-03] MEDS: FUROSEMIDE 40 MG/4 ML VIAL IVP SCH (11:22)
[2017-06-03] MEDS: FOLIC ACID 1 MG TAB PO SCH (11:23)
[2017-06-03] MEDS: THIAMINE HCL 100 MG TAB PO SCH (11:23)
[2017-06-03] MEDS: guaiFENesin E.R. 600 MG TAB PO SCH ×2 (11:23→21:14)
[2017-06-03] MEDS: FERROUS SULFATE 325 MG (65 MG ELEMENTAL IRON) TAB PO SCH ×2 (11:23→21:14)
[2017-06-03] MEDS: MULTIVITAMINS/MINERALS THERAPEUTIC TAB PO SCH (11:23)
[2017-06-03] MEDS ORDERED: PEG (High)/E-LYTE SOLN 4000 ML BTL PO ONE (14:30)
--- NOTE | 2017-06-03 15:24 | HHI.FPPN ---
Subjective Remarks Patient was seen and examined this afternoon. He feels great, stating he no longer feels short of breath and his legs are half the size they were at admission. He is ambulating without difficulty and has no chest pain or shortness of breath at rest or with exertion. He is frustrated to be on clear liquid diet and has to do a prep for colonoscopy but is understanding. He denies N/V. He states his bowel movements have been black over the last two days but not before this. He wants to be able to go home as soon as possible. Review of systems reviewed and otherwise negative. (Adelita De La O MD R2) Objective Vitals Vital Signs Date Time Temp Pulse Resp B/P (MAP) Pulse Ox O2 Delivery O2 Flow Rate FiO2 06/03/17 12:00 97.8 94 20 140/74 (96) 98 06/03/17 10:45 97.4 88 19 143/66 (91) 99 Room Air 06/03/17 10:30 94 24 119/54 (75) 98 Room Air 06/03/17 10:23 97.5 93 28 128/57 (80) 97 Room Air 06/03/17 08:00 97.8 89 19 142/76 (98) 97 06/03/17 08:00 96 06/03/17 04:00 98.5 87 18 123/74 (90) 98 06/03/17 00:00 Room Air 06/03/17 00:00 97.5 99 18 145/67 (93) 99 06/02/17 20:00 98.1 107 18 164/78 (106) 98 06/02/17 20:00 Room Air 06/02/17 20:00 106 06/02/17 16:00 98.7 105 18 129/69 (89) 97 I/O 06/02/17 06/02/17 06/02/17 06/03/17 06/03/17 06/03/17 07:00 15:00 23:00 07:00 15:00 23:00 Intake Total 981 ml 240 ml 841 ml 471 ml Output Total 2600 ml 2550 ml Balance -1619 ml 240 ml -1709 ml 471 ml Intake Oral 860 ml 240 ml 720 ml 50 ml IV Total 121 ml 121 ml 21 ml Other 400 ml Output Urine Total 2600 ml 2550 ml # Voids 0 # Bowel Movements 1 1 (Adelita De La O MD R2) Result Diagram: 06/03/17 0910 06/02/17 0159 Imaging Last 72 hours Impressions Chest X-Ray 06/01/17 1225 Signed Impressions: Service Date/Time: Thursday, June 01, 2017 13:18 - CONCLUSION: Mild atelectasis at the lung bases. Otherwise, no acute cardiopulmonary abnormality is identified. Navneet Kaur MD Lower Extremity Ultrasound 06/01/17 0000 Signed Impressions: Service Date/Time: Thursday, June 01, 2017 12:47 - CONCLUSION: No DVT is identified within either lower extremity. Navneet Kaur MD CT Angiography 06/01/17 0000 Signed Impressions: Service Date/Time: Thursday, June 01, 2017 14:23 - CONCLUSION: 1. Suboptimal opacification of pulmonary arteries with no evidence of embolism. 2. Subtle areas of patchy opacification in the right middle lobe and insula with subtle areas of bronchiectasis. These findings are of indeterminate age and could be chronic. Randal Nix MD Abdomen/Pelvis CT 06/01/17 0000 Signed Impressions: Service Date/Time: Thursday, June 01, 2017 14:27 - CONCLUSION: 1. There is no ascites. 2. Postoperative changes involving the stomach. There is a nonspecific, nonobstructive bowel gas pattern which may represent an ileus or gastroenteritis. 3. Moderate hepatic steatosis. Randal Nix MD Objective Remarks GENERAL: Well-developed male in no apparent distress in bed. SKIN: Warm and dry. No rashes or ecchymoses. HEAD: Atraumatic. Normocephalic. EYES: Pupils equal and round. No scleral icterus. No injection or drainage. No conjunctival pallor. ENT: No nasal bleeding or discharge. Mucous membranes pink and moist. NECK: Trachea midline. No JVD noted. CARDIOVASCULAR: Regular rate and rhythm. Normal S1 and S2 without murmur. LEs with 1+ pitting edema bilaterally, dressed in compression stockings. RESPIRATORY: No accessory muscle use. Clear to auscultation. Breath sounds equal bilaterally. No crackles or wheezes. GASTROINTESTINAL: Abdomen soft, non-tender, nondistended. Hepatic and splenic margins not palpable. MUSCULOSKELETAL: Extremities without clubbing, cyanosis, or edema. No obvious deformities. NEUROLOGICAL: Awake and alert. No obvious cranial nerve deficits. Motor grossly within normal limits. Normal gait. Strength 5/5 in UEs and LEs. Normal speech. PSYCHIATRIC: Appropriate mood and affect; insight and judgment normal. Medications and IVs Inpatient Medications Acetaminophen (Tylenol) 500 mg Q4H PRN PO PAIN 1-10 OR TEMP >100.4F Last administered on 06/01/17 22:42; Start 06/01/17 at 17:30 Albuterol Sulfate (Albuterol Neb) 2.5 mg Q4HR NEB PRN NEB SHORTNESS OF BREATH; Start 06/01/17 at 17:30 Benzonatate (Tessalon) 100 mg TID PRN PO COUGH; Start 06/01/17 at 17:30 Clonidine (Catapres) 0.1 mg Q6H PRN PO SEE LABEL COMMENTS; Start 06/01/17 at 17 :30 Enalaprilat (Vasotec Inj) 1.25 mg Q6H PRN IV PUSH SBP>180, DBP>100; Start 06/01 at 17:30; Stop 06/01/17 at 21:55; Status DC Ferrous Sulfate (Ferrous Sulfate) 325 mg BID PO Last administered on 06/03/17 11:23; Start 06/01/17 at 21:00 Flumazenil (Romazicon Inj) 0.2 mg Q1M PRN IV PUSH SEE LABEL COMMENTS; Start at 17:30 Folic Acid (Folate) 1 mg DAILY PO Last administered on 06/03/17 11:23; Start 06/01/17 at 17:30; Stop 06/06/17 at 17:29 Furosemide (Lasix Inj) 40 mg BID@09,18 IVP Last administered on 06/03/17 11:22 ; Start 06/01/17 at 18:00 Guaifenesin (Mucinex Er) 600 mg BID PO Last administered on 06/03/17 11:23; Start 06/01/17 at 21:00 Haloperidol Lactate (Haldol Inj) 2 mg Q15M PRN IM SEE LABEL COMMENTS; Start at 17:30 Lorazepam (Ativan Inj) 2 mg Q15M PRN IV PUSH CIWA > 20; Start 06/01/17 at 17:30 Lorazepam (Ativan) 2 mg Q2H PRN PO CIWA 11-14; Start 06/01/17 at 17:30 Miscellaneous Information ALL NURSING DEPARTME... UNSCH PRN .XX SEE LABEL COMMENTS; Start 06/03/17 at 11:00; Stop 06/04/17 at 10:59 Multivitamins/ Minerals Therapeutic (Theragran M Tab) 1 tab DAILY PO Last administered on 06/03/17 11:23; Start 06/01/17 at 17:30; Stop 06/06/17 at 17:29 Nicotine (Habitrol 14 Mg Patch.24 Hr) 1 patch DAILY T-DERMAL ; Start 06/01/17 at 20:00 Ondansetron HCl (Zofran Inj) 4 mg Q6H PRN IV NAUSEA OR VOMITING; Start at 17:00 Pantoprazole Sodium 80 mg/ Sodium Chloride 100 ml @ 10 mls/hr Q10H IV Last administered on 06/03/17 04:15; Start 06/01/17 at 16:13 Polyethylene Glycol/ Electrolytes (Colyte Liq) 4,000 ml ONCE ONCE PO ; Start at 14:30; Stop 06/03/17 at 14:31; Status DC Prednisone (Deltasone) 40 mg DAILY PO Last administered on 06/02/17 09:59; Start 06/01/17 at 17:30; Stop 06/02/17 at 13:24; Status DC Senna/Docusate Sodium (Marlyn-Colace) 2 tab BID PRN PO CONSTIPATION; Start at 17:30 Sodium Chloride 500 ml @ 500 mls/hr BOLUS ONCE IV Last administered on 16:59; Start 06/01/17 at 15:30; Stop 06/01/17 at 16:29; Status DC Thiamine HCl (Vitamin B1) 100 mg DAILY PO Last administered on 06/03/17 11:23 ; Start 06/01/17 at 17:30 Thiamine HCl 100 mg/Sodium Chloride 101 ml @ 100 mls/hr Q24H IV ; Start at 19:00; Stop 06/01/17 at 19:00; Status DC (Adelita De La O MD R2) A/P Assessment and Plan 42 yo M with PMH of PUD with UGI bleed, DVT in R leg who is presenting with 1 month history of progressing BLE edema, SOB, cough found to be anemic and Hemoccult positive on admission. GI consulted for anemia and possible GI bleed. PE work-up negative. Cardiac work-up showing Grade 1 diastolic dysfunction. Discharge Planning [place] tomorrow, pending colonoscopy scheduled for 06/04 (Adelita De La O MD R2) Attending Attestation Patient seen and examined. Case reviewed and discussed Agree with plan of care as discussed with me and documented in the resident note. (Hilda Rasheed MD) Problem List: (1) Anemia ICD Codes: D64.9 - Anemia, unspecified Status: Acute Plan: Improved symptomatically. Tachycardia resolved. Likely acute blood loss anemia from GI source given history. Stable H&H, most recently 7.8/27.2. Will continue to trend H&H periodically. GI prep pending for colonoscopy Continue clear liquid diet EGD performed 06/02 with no active bleeding noted, no obvious source of bleeding noted Continue Protonix gtt per GI Hospital Course: H/H on admission 7.6/25.7, Hemoccult positive Tachycardic on admission 100's-110's, patient stated he runs in the 100's often GI consulted - EGD performed 06/02 Trending H&H, Type and screen done Will consider transfusion if Hbg drops below 7. Treating with Ferrous Sulfate 325mg po BID NPO at midnight to prepare if GI decides to scope (2) SOB (shortness of breath) ICD Codes: R06.02 - Shortness of breath Status: Resolved Plan: Resolved, likely related to acute blood loss anemia Hospital Course: Patient reported SOB on exertion, progressive orthopnea over previous month. Smoker CHF vs PE vs ACS vs atelectasis vs pneumonia vs URI Wheezing appreciated on exam, CXR on admission showed mild atelectasis at lung bases CT chest on admission showed no evidence of embolism, subtle areas of patchy opacification in RML and insula, subtle areas of bronchiectasis of indeterminate age Lower extremity ultrasounds showed no DVT in either leg EKG on admission showed sinus tachycardia. Troponin >0.02 Echo ordered, Sputum culture/gram stain pending, will trend troponin x1 Lasix 40mg IV BID Albuterol nebs q4hr PRN, Prednisone 40mg po daily for wheezing Incentive spirometry, Acapella ordered Mucinex, Tessalon pearls ordered for cough (3) Bilateral lower extremity edema ICD Codes: R60.0 - Localized edema Status: Resolved Plan: Improving. Patient states it is almost 100% improved. PE work-up negative Echo notable for grade 1 diastolic dysfunction; patient counseled on medical management strategies Will add lipid panel (4) GI bleed ICD Codes: K92.2 - Gastrointestinal hemorrhage, unspecified Status: Acute Plan: Hemoccult positive on admission Known history of PUD with decreased compliance of Prilosec CT abdomen showed bowel gas pattern possibly representing an ileus or gastroenteritis, moderate hepatic steatosis Pantoprazole drip See anemia plan above (5) History of DVT of lower extremity ICD Codes: Z86.718 - Personal history of other venous thrombosis and embolism Status: Chronic Plan: US bilateral LE negative for DVT CTA negative for PE Fibrinogen mildly elevated; PT/PTT/INR wnl; coagulopathy profile otherwise pending History: Known history of DVT in the past (1.5 and 3 years ago) Was treated with Xarelto for 6 months duration both times Not currently on any anticoagulation (6) Cough ICD Codes: R05 - Cough Status: Resolved Plan: Resolved. (7) Alcohol abuse ICD Codes: F10.10 - Alcohol abuse, uncomplicated Status: Chronic Plan: 12-18 beers per day, last use 06/01 [facility] protocol - not requiring Ativan, however still within window Has never had withdrawal seizures or DTs during previous withdrawal Continue Thiamine, Folic acid, multivitamin (8) FEN Plan: Diet: NPO at midnight, prep for colonoscopy on 06/04 GI Prophylaxis: Pantoprazole gtt, continue DVT prophylaxis: SCDs PRN meds: Clonidine 0.1mg po q6hr PRN for SBP >180, DBP > 100 Mralyn-Colace BID PRN Zofran 4mg IV q6hr PRN (Adelita De La O MD R2) Problem Qualifiers (1) Anemia: Qualified Codes: D64.9 - Anemia, unspecified (2) GI bleed: Qualified Codes: K92.2 - Gastrointestinal hemorrhage, unspecified Adelita De La O MD R2 Jun 03, 2017 15:24 Hilda Rasheed MD Jun 05, 2017 08:38
[2017-06-03] MEDS: FUROSEMIDE 40 MG TAB PO SCH (17:39)
[2017-06-03 19:40] LABS: HEMATOCRIT 26.9 % (39.0-51.0); REVIEW FLAG FINAL
[2017-06-04 03:44] VITALS: BP 124/58; PULSE 70; RESP 16; TEMP 99.1; O2SAT 95
[2017-06-04] MEDS: PANTOPRAZOLE INJ 80 MG in SODIUM CHLORIDE 0.9% INJ 100 ML IV SCH ×3 (04:15→23:49)
[2017-06-04 08:00] VITALS: BP 133/65; PULSE 86; RESP 18; TEMP 98.5; O2SAT 96
[2017-06-04 08:25] LABS: HEMATOCRIT 24.2 % (39.0-51.0); MEAN CELL VOLUME 59.9 FL (80.0-100.0); MEAN CORPUSCULAR HEMOGLOBIN 17.4 PG (27.0-34.0); PLATELET COUNT 269 TH/MM3 (150-450); RED BLOOD COUNT 4.04 MIL/MM3 (4.50-5.90); RED CELL DISTRIBUTION WIDTH 22.5 % (11.6-17.2); REVIEW FLAG FINAL
[2017-06-04] MEDS: FERROUS SULFATE 325 MG (65 MG ELEMENTAL IRON) TAB PO SCH ×2 (09:55→21:31)
[2017-06-04] MEDS: FOLIC ACID 1 MG TAB PO SCH (09:55)
[2017-06-04] MEDS: guaiFENesin E.R. 600 MG TAB PO SCH ×2 (09:56→21:31)
[2017-06-04] MEDS: THIAMINE HCL 100 MG TAB PO SCH (09:56)
[2017-06-04] MEDS: MULTIVITAMINS/MINERALS THERAPEUTIC TAB PO SCH (09:56)
[2017-06-04] MEDS: FUROSEMIDE 40 MG TAB PO SCH ×2 (09:56→18:00)
[2017-06-04] MEDS ORDERED: LACTATED RINGER'S 1000 ML INJ 1,000 ML ONE (10:50)
--- NOTE | 2017-06-04 11:28 | HHI.FPPN ---
Subjective Remarks Patient was seen and examined this morning. He states he feels great. He completed his [employer] prep yesterday evening and is nothing by mouth. He has no complaints. He denies specifically chest pain, shortness of breath, abdominal pain. His stools per patient look more clear than yesterday but still looks like stool. No blood in the stool per report but it is dark. (Adelita De La O MD R2) Objective Vitals Vital Signs Date Time Temp Pulse Resp B/P (MAP) Pulse Ox O2 Delivery O2 Flow Rate FiO2 06/04/17 08:00 98.5 86 18 133/65 (87) 96 06/04/17 03:44 99.1 70 16 124/58 (80) 95 06/03/17 23:07 98.6 90 16 143/73 (96) 98 06/03/17 20:20 98.0 88 16 145/77 (99) 100 06/03/17 20:00 90 06/03/17 17:53 99 06/03/17 16:00 97.9 88 18 161/94 (116) 99 06/03/17 12:00 97.8 94 20 140/74 (96) 98 I/O 06/03/17 06/03/17 06/03/17 06/04/17 06/04/17 06/04/17 07:00 15:00 23:00 07:00 15:00 23:00 Intake Total 841 ml 471 ml 1200 ml Output Total 2550 ml 1150 ml Balance -1709 ml 471 ml 50 ml Intake Oral 720 ml 50 ml 1200 ml IV Total 121 ml 21 ml Other 400 ml Output Urine Total 2550 ml 1150 ml # Voids 0 2 # Bowel Movements 1 1 0 (Adelita De La O MD R2) Result Diagram: 06/04/17 0733 06/02/17 0159 Imaging Last Impressions Chest X-Ray 06/01/17 1225 Signed Impressions: Service Date/Time: Thursday, June 01, 2017 13:18 - CONCLUSION: Mild atelectasis at the lung bases. Otherwise, no acute cardiopulmonary abnormality is identified. Navneet Kaur MD Lower Extremity Ultrasound 06/01/17 0000 Signed Impressions: Service Date/Time: Thursday, June 01, 2017 12:47 - CONCLUSION: No DVT is identified within either lower extremity. Navneet Kaur MD CT Angiography 06/01/17 0000 Signed Impressions: Service Date/Time: Thursday, June 01, 2017 14:23 - CONCLUSION: 1. Suboptimal opacification of pulmonary arteries with no evidence of embolism. 2. Subtle areas of patchy opacification in the right middle lobe and insula with subtle areas of bronchiectasis. These findings are of indeterminate age and could be chronic. Randal Nix MD Abdomen/Pelvis CT 06/01/17 0000 Signed Impressions: Service Date/Time: Thursday, June 01, 2017 14:27 - CONCLUSION: 1. There is no ascites. 2. Postoperative changes involving the stomach. There is a nonspecific, nonobstructive bowel gas pattern which may represent an ileus or gastroenteritis. 3. Moderate hepatic steatosis. Randal Nix MD Objective Remarks GENERAL: Well-developed male in no apparent distress in bed. SKIN: Warm and dry. No rashes or ecchymoses. HEAD: Atraumatic. Normocephalic. EYES: Pupils equal and round. No scleral icterus. No injection or drainage. No conjunctival pallor. ENT: No nasal bleeding or discharge. Mucous membranes pink and moist. NECK: Trachea midline. No JVD noted. CARDIOVASCULAR: Regular rate and rhythm. Normal S1 and S2 without murmur. LEs with only trace pitting edema bilaterally. RESPIRATORY: No accessory muscle use. Clear to auscultation. Breath sounds equal bilaterally. No crackles or wheezes. GASTROINTESTINAL: Abdomen soft, non-tender, nondistended. Hepatic and splenic margins not palpable. MUSCULOSKELETAL: Extremities without clubbing, cyanosis, or edema. No obvious deformities. NEUROLOGICAL: Awake and alert. No obvious cranial nerve deficits. Motor grossly within normal limits. Normal gait. Strength 5/5 in UEs and LEs. Normal speech. PSYCHIATRIC: Appropriate mood and affect; insight and judgment normal. Medications and IVs Inpatient Medications Acetaminophen (Tylenol) 500 mg Q4H PRN PO PAIN 1-10 OR TEMP >100.4F Last administered on 06/01/17t 22:42; Start 06/01/17 at 17:30 Albuterol Sulfate (Albuterol Neb) 2.5 mg Q4HR NEB PRN NEB SHORTNESS OF BREATH; Start 06/01/17 at 17:30 Benzonatate (Tessalon) 100 mg TID PRN PO COUGH; Start 06/01/17 at 17:30 Clonidine (Catapres) 0.1 mg Q6H PRN PO SEE LABEL COMMENTS; Start 06/01/17 at 17 :30 Enalaprilat (Vasotec Inj) 1.25 mg Q6H PRN IV PUSH SBP>180, DBP>100; Start 06/01 at 17:30; Stop 06/01/17 at 21:55; Status DC Ferrous Sulfate (Ferrous Sulfate) 325 mg BID PO Last administered on 06/04/17 09:55; Start 06/01/17 at 21:00 Flumazenil (Romazicon Inj) 0.2 mg Q1M PRN IV PUSH SEE LABEL COMMENTS; Start at 17:30 Folic Acid (Folate) 1 mg DAILY PO Last administered on 06/04/17 09:55; Start 06/01/17 at 17:30; Stop 06/06/17 at 17:29 Furosemide (Lasix Inj) 40 mg BID@,18 IVP Last administered on 06/03/17 11:22 ; Start 06/01/17 at 18:00; Stop 06/03/17 at 15:39; Status DC Furosemide (Lasix) 40 mg BID@09,18 PO Last administered on 06/04/17 09:56; Start 06/03/17 at 18:00 Guaifenesin (Mucinex Er) 600 mg BID PO Last administered on 06/04/17 09:56; Start 06/01/17 at 21:00 Haloperidol Lactate (Haldol Inj) 2 mg Q15M PRN IM SEE LABEL COMMENTS; Start at 17:30 Lorazepam (Ativan Inj) 2 mg Q15M PRN IV PUSH CIWA > 20; Start 06/01/17 at 17:30 Lorazepam (Ativan) 2 mg Q2H PRN PO CIWA 11-14; Start 06/01/17 at 17:30 Miscellaneous Information ALL NURSING DEPARTME... UNSCH PRN .XX SEE LABEL COMMENTS; Start 06/03/17 at 11:00; Stop 06/04/17 at 10:59; Status DC Multivitamins/ Minerals Therapeutic (Theragran M Tab) 1 tab DAILY PO Last administered on 06/04/17 09:56; Start 06/01/17 at 17:30; Stop 06/06/17 at 17:29 Nicotine (Habitrol 14 Mg Patch.24 Hr) 1 patch DAILY T-DERMAL ; Start 06/01/17 at 20:00; Stop 06/03/17 at 15:32; Status DC Ondansetron HCl (Zofran Inj) 4 mg Q6H PRN IV NAUSEA OR VOMITING; Start at 17:00 Pantoprazole Sodium 80 mg/ Sodium Chloride 100 ml @ 10 mls/hr Q10H IV Last administered on 06/04/17 04:15; Start 06/01/17 at 16:13 Polyethylene Glycol/ Electrolytes (Colyte Liq) 4,000 ml ONCE ONCE PO Last administered on 06/03/17 15:28; Start 06/03/17 at 14:30; Stop 06/03/17 at 14:31 ; Status DC Prednisone (Deltasone) 40 mg DAILY PO Last administered on 06/02/17 09:59; Start 06/01/17 at 17:30; Stop 06/02/17 at 13:24; Status DC Senna/Docusate Sodium (Marlyn-Colace) 2 tab BID PRN PO CONSTIPATION; Start at 17:30 Sodium Chloride 500 ml @ 500 mls/hr BOLUS ONCE IV Last administered on 16:59; Start 06/01/17 at 15:30; Stop 06/01/17 at 16:29; Status DC Thiamine HCl (Vitamin B1) 100 mg DAILY PO Last administered on 06/04/17 09:56 ; Start 06/01/17 at 17:30 Thiamine HCl 100 mg/Sodium Chloride 101 ml @ 100 mls/hr Q24H IV ; Start at 19:00; Stop 06/01/17 at 19:00; Status DC (Adelita De La O MD R2) Urinary Catheter: No (Adelita De La O MD R2) Vascular Central Line Catheter: No (Adelita De La O MD R2) A/P Assessment and Plan 42 yo M with PMH of PUD with UGI bleed, DVT in R leg who is presenting with 1 month history of progressing BLE edema, SOB, cough found to be anemic and Hemoccult positive on admission. GI consulted for anemia and possible GI bleed. PE work-up negative. Cardiac work-up showing Grade 1 diastolic dysfunction, which patient has been counseled requires medical management and follow-up. Discharge Planning Possible discharge today, pending colonoscopy scheduled for 06/04 (Adelita De La O MD R2) Attending Attestation Patient seen and examined. Case reviewed and discussed Agree with plan of care as discussed with me and documented in the resident note. (Hilda Rasheed MD) Problem List: (1) Anemia ICD Codes: D64.9 - Anemia, unspecified Status: Acute Plan: H/H stable yesterday, with notable hemoglobin of 7.0 this morning. Colonoscopy is scheduled for today, will follow up results as likely there is a GI source to acute blood loss. His symptoms have resolved. Will continue to trend H&H periodically. Will return to clear liquid diet after colonoscopy, possibly to be discharged today EGD performed 06/02 with no active bleeding noted, no obvious source of bleeding noted Continue Protonix gtt per GI, likely transition to PPI by mouth today Hospital Course: H/H on admission 7.6/25.7, Hemoccult positive Tachycardic on admission 100's-110's. This has resolved. GI consulted - EGD performed 06/02 Trending H&H Will consider transfusion if Hbg drops below 7. Treating with Ferrous Sulfate 325mg po BID (2) SOB (shortness of breath) ICD Codes: R06.02 - Shortness of breath Status: Resolved Plan: Resolved, possibly related to acute blood loss anemia but given source has not been identified, the SOB may have been due to fluid overload We'll continue Lasix as below Supportive treatment as below Hospital Course: Patient reported SOB on exertion, progressive orthopnea over previous month. Smoker of 1-2 packs per day for many years. CXR on admission showed mild atelectasis at lung bases CT chest on admission showed no evidence of embolism, subtle areas of patchy opacification in RML and insula, subtle areas of bronchiectasis of indeterminate age Lower extremity ultrasounds showed no DVT in either leg EKG on admission showed sinus tachycardia. Troponin <0.02. Prednisone 40mg PO x 2 Lasix 40mg PO twice a day Sputum culture pending, so far negative Albuterol nebs q4hr PRN Incentive spirometry, Acapella ordered Mucinex, Tessalon pearls PRN cough (3) Bilateral lower extremity edema ICD Codes: R60.0 - Localized edema Status: Resolved Plan: Resolved. Continue compression stockings. Hospital course: PE work-up negative Echo notable for grade 1 diastolic dysfunction; patient counseled on medical management strategies Patient should have lipid panel as outpatient (4) GI bleed ICD Codes: K92.2 - Gastrointestinal hemorrhage, unspecified Status: Acute Plan: Hemoccult positive on admission Known history of PUD with decreased compliance of Prilosec CT abdomen showed bowel gas pattern possibly representing an ileus or gastroenteritis, moderate hepatic steatosis Pantoprazole drip See anemia plan above (5) History of DVT of lower extremity ICD Codes: Z86.718 - Personal history of other venous thrombosis and embolism Status: Chronic Plan: US bilateral LE negative for DVT CTA negative for PE Fibrinogen mildly elevated; PT/PTT/INR wnl; coagulopathy profile otherwise pending History: Known history of DVT in the past (1.5 and 3 years ago) Was treated with Xarelto for 6 months duration both times Not currently on any anticoagulation (6) Cough ICD Codes: R05 - Cough Status: Resolved Plan: Resolved. (7) Alcohol abuse ICD Codes: F10.10 - Alcohol abuse, uncomplicated Status: Chronic Plan: 12-18 beers per day, last use 06/01 [facility] protocol - not requiring Ativan, however still within window Has never had withdrawal seizures or DTs during previous withdrawal Continue Thiamine, Folic acid, multivitamin (8) FEN Plan: Diet: NPO at midnight, prep for colonoscopy on 06/04, may initiate clear liquid diet after procedure GI Prophylaxis: Pantoprazole gtt, continue per GI DVT prophylaxis: SCDs PRN meds: Clonidine 0.1mg po q6hr PRN for SBP >180, DBP > 100 Marlyn-Colace BID PRN Zofran 4mg IV q6hr PRN (Adelita De La O MD R2) Problem Qualifiers (1) Anemia: Qualified Codes: D64.9 - Anemia, unspecified (2) GI bleed: Qualified Codes: K92.2 - Gastrointestinal hemorrhage, unspecified Adelita De La O MD R2 Jun 04, 2017 11:28 Hilda Rasheed MD Jun 05, 2017 14:14
[2017-06-04] MEDS ORDERED: LIDOCAINE HCL 1% PF 5 ML AMPULE OTHER ONE (12:00)
[2017-06-04] MEDS ORDERED: PROPOFOL 200 MG/20 ML AMP IV PUSH ONE (12:16)
--- NOTE | 2017-06-04 12:24 | GIPROC ---
[facility] [address] [facility]. [facility], [address] COLONOSCOPY PROCEDURE REPORT EXAM DATE: 06/04/2017 PATIENT NAME: Gopi Viera MR #: [id number] BIRTHDATE: 1975 ENDOSCOPIST: Viry Melendez MD ORDER #: [id number] FREEZER PERSON: Kareem Petersen and Sonal Lazo STATUS: inpatient INDICATIONS: The patient is a 42 yr old male here for a colonoscopy due to anemia, non-specific and possible GI bleed PROCEDURE PERFORMED: Colonoscopy, diagnostic MEDICATIONS: None and Per Anesthesia. PREP QUALITY: 10 % obscured ESTIMATED BLOOD LOSS: None CONSENT: The patient understands the risks and benefits of the procedure and understands that these risks include, but are not limited to: sedation, allergic reaction, infection, perforation and/or bleeding. Alternative means of evaluation and treatment include, among others: physical exam, x-rays, and/or surgical intervention. The patient elects to proceed with this endoscopic procedure. medical equipment was checked for proper function. Hand hygiene and appropriate measures for infection prevention was taken. After the risks, benefits and alternatives of the procedure were thoroughly explained, Informed consent was verified, confirmed and timeout was successfully executed by the treatment team. A digital exam revealed no abnormalities of the rectum The Pentax [id number] endoscope was introduced through the anus and advanced to the cecum, which was identified by both the appendix and ileocecal valve. The instrument was then slowly withdrawn as the colon was fully examined. COLON FINDINGS: Some stool mostly in the right colon may interfere with vision of small lesion. The colon mucosa was otherwise normal. Retroflexed views revealed no abnormalities The scope was then completely withdrawn from the patient and the procedure terminated. ADVERSE EVENTS: There were no complications. IMPRESSIONS: 1. Some stool mostly in the right colon may interfere with vision of small lesion 2. The colon mucosa was otherwise normal 3. Retroflexed views revealed no abnormalities 4. Revealed no abnormalities of the rectum RECOMMENDATIONS: 1. Yearly hemoccult 2. High fiber diet 3. If anemia persists patient would need to have capsule endoscopy as an outpatient May start feeding patient Avoid alcohol Follow up as an outpatient RECALL: Return 5 years Colonoscopy Viry Melendez MD eSigned: Viry Melendez MD 06/04/2017 12:24 PM cc: PATIENT NAME: Gopi Viera MR#: [id number]
--- NOTE | 2017-06-04 12:28 | HHI.GIFU ---
Subjective Remarks Patient lying in bed comfortable, tolerated his prep, he said he feels great and hungry, no sign of GI bleeding, his hemoglobin slightly dropped Objective Vitals I&O Vital Signs Date Time Temp Pulse Resp B/P (MAP) Pulse Ox O2 Delivery O2 Flow Rate FiO2 06/04/17 08:00 98.5 86 18 133/65 (87) 96 06/04/17 03:44 99.1 70 16 124/58 (80) 95 06/03/17 23:07 98.6 90 16 143/73 (96) 98 06/03/17 20:20 98.0 88 16 145/77 (99) 100 06/03/17 20:00 90 06/03/17 17:53 99 06/03/17 16:00 97.9 88 18 161/94 (116) 99 I/O 06/03/17 06/03/17 06/03/17 06/04/17 06/04/17 06/04/17 07:00 15:00 23:00 07:00 15:00 23:00 Intake Total 841 ml 471 ml 1200 ml 400 ml Output Total 2550 ml 1150 ml 250 ml Balance -1709 ml 471 ml 50 ml 150 ml Intake Oral 720 ml 50 ml 1200 ml IV Total 121 ml 21 ml Other 400 ml 400 ml Output Urine Total 2550 ml 1150 ml 250 ml # Voids 0 2 1 # Bowel Movements 1 1 0 Laboratory Laboratory Tests Test 06/03/17 19:07 06/04/17 07:33 Hemoglobin 7.8 7.0 Hematocrit 26.9 24.2 White Blood Count 6.0 Red Blood Count 4.04 Mean Corpuscular Volume 59.9 Mean Corpuscular Hemoglobin 17.4 Mean Corpuscular Hemoglobin Concent 29.0 Red Cell Distribution Width 22.5 Platelet Count 269 Mean Platelet Volume 8.6 Date/Time Source Procedure Growth Status 06/03/17 07:50 Sputum Expectorated Sputum Gram Stain - Final Resulted 06/03/17 07:50 Sputum Expectorated Sputum Sputum Culture Pending Resulted Physical Exam HEENT: Pupils round and reactive to light; normocephalic; atraumatic; no jaundice. Throat is clear. Obese NECK: Neck is supple, no JVD, no lymphadenopathy. CHEST: Chest is clear to auscultation and percussion. CARDIAC: Regular rate and rhythm with no murmur gallop or rubs. ABDOMEN: Soft, nondistended, nontender; no hepatosplenomegaly; bowel sounds are present in all four quadrants. Surgical scar on abdomen EXTREMITIES: No clubbing, cyanosis, or edema. SKIN: Normal; no rash; no jaundice. GASOLINE ATTENDANT: No focal deficits; alert and oriented times three. Assessment and Plan Plan ASSESSMENT: - GI Bleed, Hemoccult positive stools. HH on admission 7.6/25.7. Heavy alcohol use. History of PUD with GIB 11 years ago, noncompliance of Prilosec medication x 1-2 months. No active bleeding noted. Abdomen CT ()--1. There is no ascites. 2. Postoperative changes involving the stomach. There is a nonspecific, nonobstructive bowel gas pattern which may represent an ileus or gastroenteritis. 3. Moderate hepatic steatosis. - Anemia, as above. HH 7.3/25.2 (06/02) - Shortness of breath, + heavy tobacco use. CXR (06/01/17)--Mild atelectasis at the lung bases. Otherwise, no acute cardiopulmonary abnormality is identified CT Angiography (06/01/17)--1. Suboptimal opacification of pulmonary arteries with no evidence of embolism. 2. Subtle areas of patchy opacification in the right middle lobe and insula with subtle areas of bronchiectasis. These findings are of indeterminate age and could be chronic. - Lower extremity edema, bilateral. LE US negative for DVT. 06/03/2017 no sign of DVT, no sign of active bleeding, EGD showed anatomy consistent with previous partial gastrectomy there was a nodule at the GE junction biopsy was done with the postsurgical changes, no other abnormality seen to explain the anemia 06/04/2017 no DVT, no active bleed, colonoscopy did not show any abnormality even though there was some stool PLAN: -Diet as tolerated - Continue Pantoprazole gtt - Monitor HH, transfuse as necessary - Supportive care - If continue to be anemic consider capsule endoscopy as an outpatient - Consider hematology consult, his anemia could be related to the gastrectomy Viry Melendez MD Jun 04, 2017 12:28
[2017-06-04 14:43] LABS: HDL CHOLESTEROL 26.7 MG/DL (40.0-60.0)
[2017-06-04] MEDS ORDERED: SODIUM CHLOR 0.9% 250 ML INJ 250 ML IV ONE (15:15)
[2017-06-04] MEDS ORDERED: diphenhydrAMINE HCL 25 MG CAP PO PRN (15:15)
[2017-06-04 16:00] VITALS: BP 130/71; PULSE 94; RESP 18; TEMP 98; O2SAT 98
[2017-06-04 19:33] VITALS: PULSE 84
--- NOTE | 2017-06-04 20:38 | MB ---
cc: BRYON WYNN M.D. DATE OF CONSULTATION June 04, [address] Adelita De La O REASON FOR CONSULTATION Hematology consulted to render opinion guarding patient with symptomatic anemia. HISTORY OF PRESENT ILLNESS The patient is a very pleasant 42-year-old male who presented to the hospital complaint of bilateral lower extremity edema, shortness of breath and cough which has been going on for about a month, is progressively getting worse. It started when he was in [place]. He drove down to [place] and his symptom was worse. He recently was laid off and he has been sitting around drinking up to 18 beers a day. He has history of gastric bypass surgery about 15 years ago. 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 When he presented to the emergency room his hemoglobin was 7.6. Over the last few days it trended down to 7. He had an EGD and colonoscopy which did not show any active bleeding. Since diuresing he is feeling much better. He denies any fever or chills or weight loss. Denies any chest pressure or palpitation. Denies any nausea or vomiting, diarrhea, abdominal pain. Denies any melena, hematochezia. Denied any dysuria, hematuria. Denies any pica symptoms. PAST MEDICAL HISTORY Upper GI bleed due to peptic ulcer disease about 11 years ago. Right lower extremity deep venous thrombosis first episode about 3 years ago. At that time he was sick. He was on Xarelto for 6 months. He had recurrent DVT about a year and a half ago which was unprovoked. He was on Xarelto for another 6 months. Hemorrhoid. PAST SURGICAL HISTORY Gastric bypass surgery 15 years ago. [place] teeth extraction. FAMILY HISTORY Father of blood clot. He has one full brother, one half-sister without history of blood clot. His daughter is healthy. SOCIAL HISTORY He drinks 12-18 beers a day. He smokes one to two packs a day for the last 20 years. ALLERGIES NO KNOWN DRUG ALLERGIES. CURRENT MEDICATIONS 1. Lasix. 2. Ferrous sulfate. 3. Mucinex. 4. Folic acid. 5. Thiamine. 6. Multivitamin. REVIEW OF SYSTEMS CONSTITUTIONAL: As above. EYES: Negative. ENT: Negative. CARDIOVASCULAR: No chest pressure, palpitation. RESPIRATORY: As above. GI: As above. : No dysuria, hematuria. MUSCULOSKELETAL: Negative. HEMATOLOGY: As above. ENDOCRINE: Negative DERMATOLOGY: Negative. PSYCHIATRIC: Negative. NEUROLOGIC: Negative. PHYSICAL EXAMINATION VITAL SIGNS: Temperature 98, blood pressure 130/71, O2 saturation 98% room air. GENERAL: He is alert and oriented x3. He is obese. He looks pale. HEENT: Atraumatic, normocephalic. Pupils equal, round and reactive to light. Extraocular muscle intact. No scleral icterus. Oropharynx dry mucosa. No lesion or thrush. NECK: No thyromegaly. No palpable mass. LYMPH NODE SURVEY: No palpable cervical, clavicular, axillary, inguinal lymph node. CARDIOVASCULAR: Regular S1-S2. No murmur. LUNGS: Clear to auscultation bilaterally. ABDOMEN: Soft, nontender. Could not palpate liver or spleen. EXTREMITIES: No cyanosis, clubbing. He still has trace ankle edema. No calf tenderness. SKIN: No rash or petechiae. NEUROLOGIC: Exam nonfocal. LABORATORY data Reviewed. ASSESSMENT 1. Symptomatic anemia, unknown chronicity. He has had symptom of shortness of breath and lower extremity edema for more than a month. He presented with hemoglobin of 7.6, over last few days his hemoglobin has been around 7. He had colonoscopy and upper endoscopy which did not show any active bleeding. He has significant microcytosis but no iron studies done yet. He has history of gastric bypass surgery 15 years ago. He likely has iron deficiency anemia due to poor absorption from gastric bypass surgery and possible occult bleed. I am going to check his iron study and vitamin study. Will arrange for him to have iron infusion tomorrow after we have the iron study. I think he should follow up with gastroenterology as outpatient as he may need capsule endoscopy for further evaluation. 2. Lower extremity edema and shortness of breath. Symptoms have resolved with diuretic. CT angiogram did not show any pulmonary embolism. Echo showed a grade 1 diastolic dysfunction. 3. History of right lower extremity recurrent deep venous thrombosis. The first episode happened 3 years ago when he was sick. He was on Xarelto for 6 months. He had recurrent DVT in the same right leg a year and a half later which appeared to be unprovoked. He was on Xarelto for another 6 months. There is no family history of thromboembolic event. Hypercoagulable work-up has been ordered and results are pending. No indication to restart anticoagulation at this point. RECOMMENDATIONS 1. Check iron study and vitamin study. 2. Arrange for him to have Venofer tomorrow morning. He will need outpatient followup with hematology to continue iron infusion after discharge from hospital. Thank you Dr. De La O for asking me to see this patient. MD ABY Horne/CELESTINE /7:43 PM /8:17 PM DARIEN
[2017-06-04] MEDS: ACETAMINOPHEN 325 MG TAB PO PRN (21:31)
[2017-06-04 21:32] LABS: FERRITIN 6 NG/ML (26-388); LDH SERUM 175 U/L (87-241); TRANSFERRIN IRON PROFILE 294 MG/DL (200-360)
[2017-06-04 21:36] VITALS: BP 132/73; PULSE 80; RESP 17; TEMP 98.2; O2SAT 98
[2017-06-04 21:52] LABS: RETIC % 2.2 % (0.4-3.0); REVIEW FLAG FINAL
[2017-06-04 22:12] VITALS: BP 138/69; PULSE 82; RESP 17; TEMP 97.6; O2SAT 99
[2017-06-05] VITALS (11 sets, daily range): BP systolic 126–153; BP diastolic 63–75; PULSE 74–106; RESP 16–20; TEMP 97.9–98.7; O2SAT 94–98
[2017-06-05 01:49] LABS: HEMATOCRIT 26.4 % (39.0-51.0); MEAN CELL VOLUME 62.3 FL (80.0-100.0); MEAN CORPUSCULAR HEMOGLOBIN 18.1 PG (27.0-34.0); PLATELET COUNT 257 TH/MM3 (150-450); RED BLOOD COUNT 4.23 MIL/MM3 (4.50-5.90); RED CELL DISTRIBUTION WIDTH 24.2 % (11.6-17.2); REVIEW FLAG FINAL; WHITE BLOOD COUNT 7.4 TH/MM3 (4.0-11.0)
[2017-06-05 01:59] LABS: BICARBONATE 24.5 MEQ/L (21.0-32.0); POTASSIUM 3.7 MEQ/L (3.5-5.1)
[2017-06-05] MEDS ORDERED: SODIUM CHLOR 0.9% 250 ML INJ 250 ML IV ONE (08:15)
[2017-06-05] MEDS ORDERED: IRON SUCROSE INJ 200 MG in SODIUM CHLORIDE 0.9% INJ 100 ML IV ONE (09:00)
[2017-06-05] MEDS ORDERED: FURO40TA PO (09:30)
[2017-06-05] MEDS ORDERED: OMEP40CA2 PO (09:31)
--- NOTE | 2017-06-05 09:32 | HHI.DCPOC ---
Discharge Care Plan Diagnosis: (1) Diastolic congestive heart failure, NYHA class 1 (2) Anemia Goals to Promote Your Health * To prevent worsening of your condition and complications * To maintain your health at the optimal level Directions to Meet Your Goals Take your medications as prescribed Follow your dietary instruction Follow activity as directed Keep your appointments as scheduled Take your immunizations and boosters as scheduled If your symptoms worsen call your PCP, if no PCP go to Urgent Care Center or Emergency Room Smoking is Dangerous to Your Health. Avoid second hand smoke Call the 24-hour hour crisis hotline for domestic abuse at Adelita De La O MD R2 Jun 05, 2017 09:32 Hilda Rasheed MD Jun 05, 2017 09:46
[2017-06-05] MEDS: MULTIVITAMINS/MINERALS THERAPEUTIC TAB PO SCH (10:04)
[2017-06-05] MEDS: THIAMINE HCL 100 MG TAB PO SCH (10:06)
[2017-06-05] MEDS: FERROUS SULFATE 325 MG (65 MG ELEMENTAL IRON) TAB PO SCH ×2 (10:06→22:25)
[2017-06-05] MEDS: FUROSEMIDE 40 MG TAB PO SCH ×2 (10:07→18:23)
[2017-06-05] MEDS: guaiFENesin E.R. 600 MG TAB PO SCH ×2 (10:10→22:25)
[2017-06-05] MEDS: FOLIC ACID 1 MG TAB PO SCH (10:10)
--- NOTE | 2017-06-05 10:33 | HHI.FPPN ---
Subjective Remarks Patient was seen and examined this morning. He states he feels great and is ready to get the IV iron and 1 unit of blood that the hematologists order. He has no new complaints today and hopes to go home. (Adelita De La O MD R2) Objective Vitals Vital Signs Date Time Temp Pulse Resp B/P (MAP) Pulse Ox O2 Delivery O2 Flow Rate FiO2 06/05/17 08:00 98.5 87 16 134/70 (91) 97 06/05/17 06:36 106 06/05/17 04:00 98.7 78 18 139/65 (89) 94 06/05/17 00:00 97.9 80 18 132/63 (86) 98 06/04/17 22:12 97.6 82 17 138/69 99 06/04/17 21:36 98.2 80 17 132/73 98 06/04/17 19:33 84 06/04/17 16:00 98.0 94 18 130/71 (90) 98 06/04/17 12:27 97.0 83 20 130/70 (90) 96 I/O 06/04/17 06/04/17 06/04/17 06/05/17 06/05/17 06/05/17 07:00 15:00 23:00 07:00 15:00 23:00 Intake Total 1200 ml 400 ml 720 ml 252 ml Output Total 1150 ml 250 ml Balance 50 ml 150 ml 720 ml 252 ml Intake Oral 1200 ml 720 ml Packed Cells 250 ml Blood Product IV Normal Saline Flush 2 ml Other 400 ml Output Urine Total 1150 ml 250 ml # Voids 1 2 2 # Bowel Movements 0 2 (Adelita De La O MD R2) Result Diagram: 06/05/17 0138 06/05/17 0138 Imaging Last Impressions Chest X-Ray 06/01/17 1225 Signed Impressions: Service Date/Time: Thursday, June 01, 2017 13:18 - CONCLUSION: Mild atelectasis at the lung bases. Otherwise, no acute cardiopulmonary abnormality is identified. Navneet Kaur MD Lower Extremity Ultrasound 06/01/17 0000 Signed Impressions: Service Date/Time: Thursday, June 01, 2017 12:47 - CONCLUSION: No DVT is identified within either lower extremity. Navneet Kaur MD CT Angiography 06/01/17 0000 Signed Impressions: Service Date/Time: Thursday, June 01, 2017 14:23 - CONCLUSION: 1. Suboptimal opacification of pulmonary arteries with no evidence of embolism. 2. Subtle areas of patchy opacification in the right middle lobe and insula with subtle areas of bronchiectasis. These findings are of indeterminate age and could be chronic. Randal Nix MD Abdomen/Pelvis CT 06/01/17 0000 Signed Impressions: Service Date/Time: Thursday, June 01, 2017 14:27 - CONCLUSION: 1. There is no ascites. 2. Postoperative changes involving the stomach. There is a nonspecific, nonobstructive bowel gas pattern which may represent an ileus or gastroenteritis. 3. Moderate hepatic steatosis. Randal Nix MD Objective Remarks GENERAL: Well-developed male in no apparent sitting up in bed. SKIN: Warm and dry. No rashes or ecchymoses. HEAD: Atraumatic. Normocephalic. EYES: Pupils equal and round. No scleral icterus. No injection or drainage. No conjunctival pallor. ENT: No nasal bleeding or discharge. Mucous membranes pink and moist. NECK: Trachea midline. No JVD noted. CARDIOVASCULAR: Regular rate and rhythm. Normal S1 and S2 without murmur. LEs with only trace pitting edema bilaterally, improved. RESPIRATORY: No accessory muscle use. Clear to auscultation. Breath sounds equal bilaterally. No crackles or wheezes. GASTROINTESTINAL: Abdomen soft, non-tender, nondistended. Hepatic and splenic margins not palpable. MUSCULOSKELETAL: Extremities without clubbing, cyanosis, or edema. No obvious deformities. NEUROLOGICAL: Awake and alert. No obvious cranial nerve deficits. Motor grossly within normal limits. Normal gait. Strength 5/5 in UEs and LEs. Normal speech. PSYCHIATRIC: Appropriate mood and affect; insight and judgment normal. Medications and IVs Inpatient Medications Acetaminophen (Tylenol) 650 mg Q4H PRN PO SEE LABEL COMMENTS Last administered on 06/04/17t 21:31; Start 06/04/17 at 15:15 Albuterol Sulfate (Albuterol Neb) 2.5 mg Q4HR NEB PRN NEB SHORTNESS OF BREATH; Start 06/01/17 at 17:30 Benzonatate (Tessalon) 100 mg TID PRN PO COUGH; Start 06/01/17 at 17:30 Clonidine (Catapres) 0.1 mg Q6H PRN PO SEE LABEL COMMENTS; Start 06/01/17 at 17 :30 Diphenhydramine HCl (Benadryl) 25 mg Q4H PRN PO SEE LABEL COMMENTS Last administered on 06/04/17 21:31; Start 06/04/17 at 15:15 Enalaprilat (Vasotec Inj) 1.25 mg Q6H PRN IV PUSH SBP>180, DBP>100; Start 06/01 at 17:30; Stop 06/01/17 at 21:55; Status DC Ferrous Sulfate (Ferrous Sulfate) 325 mg BID PO Last administered on 06/05/17 22:25; Start 06/01/17 at 21:00 Flumazenil (Romazicon Inj) 0.2 mg Q1M PRN IV PUSH SEE LABEL COMMENTS; Start at 17:30 Folic Acid (Folate) 1 mg DAILY PO Last administered on 06/05/17 10:10; Start 06/01/17 at 17:30; Stop 06/06/17 at 17:29 Furosemide (Lasix Inj) 40 mg BID@09,18 IVP Last administered on 06/03/17 11:22 ; Start 06/01/17 at 18:00; Stop 06/03/17 at 15:39; Status DC Furosemide (Lasix) 40 mg BID@09,18 PO Last administered on 06/06/17 00:02; Start 06/03/17 at 18:00 Guaifenesin (Mucinex Er) 600 mg BID PO Last administered on 06/05/17 22:25; Start 06/01/17 at 21:00 Haloperidol Lactate (Haldol Inj) 2 mg Q15M PRN IM SEE LABEL COMMENTS; Start at 17:30 Iron Sucrose 200 mg/Sodium Chloride 110 ml @ 110 mls/hr ONCE ONCE IV Last administered on 06/05/17 10:03; Start 06/05/17 at 09:00; Stop 06/05/17 at 09:59 ; Status DC Lorazepam (Ativan Inj) 2 mg Q15M PRN IV PUSH CIWA > 20; Start 06/01/17 at 17:30 Lorazepam (Ativan) 2 mg Q2H PRN PO CIWA 11-14; Start 06/01/17 at 17:30 Miscellaneous Information ALL NURSING DEPARTME... UNSCH PRN .XX SEE LABEL COMMENTS; Start 06/03/17 at 11:00; Stop 06/04/17 at 10:59; Status DC Multivitamins/ Minerals Therapeutic (Theragran M Tab) 1 tab DAILY PO Last administered on 06/05/17 10:04; Start 06/01/17 at 17:30; Stop 06/06/17 at 17:29 Nicotine (Habitrol 14 Mg Patch.24 Hr) 1 patch DAILY T-DERMAL ; Start 06/01/17 at 20:00; Stop 06/03/17 at 15:32; Status DC Ondansetron HCl (Zofran Inj) 4 mg Q6H PRN IV NAUSEA OR VOMITING; Start at 17:00 Pantoprazole Sodium 80 mg/ Sodium Chloride 100 ml @ 10 mls/hr Q10H IV Last administered on 06/05/17 18:22; Start 06/01/17 at 16:13 Polyethylene Glycol/ Electrolytes (Colyte Liq) 4,000 ml ONCE ONCE PO Last administered on 06/03/17 15:28; Start 06/03/17 at 14:30; Stop 06/03/17 at 14:31 ; Status DC Prednisone (Deltasone) 40 mg DAILY PO Last administered on 06/02/17 09:59; Start 06/01/17 at 17:30; Stop 06/02/17 at 13:24; Status DC Senna/Docusate Sodium (Marlyn-Colace) 2 tab BID PRN PO CONSTIPATION; Start at 17:30 Sodium Chloride 250 ml @ 15 mls/hr ONCE ONCE IV Last administered on 18:21; Start 06/05/17 at 08:15; Stop 06/06/17 at 00:54; Status DC Thiamine HCl (Vitamin B1) 100 mg DAILY PO Last administered on 06/05/17 10:06 ; Start 06/01/17 at 17:30 Thiamine HCl 100 mg/Sodium Chloride 101 ml @ 100 mls/hr Q24H IV ; Start at 19:00; Stop 06/01/17 at 19:00; Status DC (Adelita De La O MD R2) A/P Assessment and Plan 42 yo M with PMH of PUD with UGI bleed, DVT in R leg who is presenting with 1 month history of progressing BLE edema, SOB, cough found to be anemic and Hemoccult positive on admission. GI consulted for anemia and possible GI bleed. PE work-up negative. Cardiac work-up showing Grade 1 diastolic dysfunction, which patient has been counseled requires medical management and follow-up. Discharge Planning Possible discharge today after Venofer and 1 unit PRBC (Adelita De La O MD R2) Attending Attestation Patient seen and examined. Case reviewed and discussed Agree with plan of care as discussed with me and documented in the resident note. (Hilda Rasheed MD) Problem List: (1) Anemia ICD Codes: D64.9 - Anemia, unspecified Status: Acute Plan: H/H 7.7 this morning, improved less than 1 g/deciliter with 1 pint of blood. Symptoms are resolved. Stable yesterday, with notable hemoglobin of 7.0 this morning. Patient possibly discharged today Transition PPI to by mouth medication today Will receive IV Venofer and another 1 unit PRBC today per hematology Hospital Course: H/H on admission 7.6/25.7, Hemoccult positive Tachycardic on admission 100's-110's. This has resolved. GI consulted - EGD and colonoscopy performed showed no obvious source of bleeding. Biopsy is unremarkable Will consider transfusion if Hbg drops below 7. (2) SOB (shortness of breath) ICD Codes: R06.02 - Shortness of breath Status: Resolved Plan: Resolved, possibly related to acute blood loss anemia but given source has not been identified, the SOB may have been due to fluid overload We'll continue Lasix as below Supportive treatment as below Hospital Course: Patient reported SOB on exertion, progressive orthopnea over previous month. Smoker of 1-2 packs per day for many years. CXR on admission showed mild atelectasis at lung bases CT chest on admission showed no evidence of embolism, subtle areas of patchy opacification in RML and insula, subtle areas of bronchiectasis of indeterminate age Lower extremity ultrasounds showed no DVT in either leg EKG on admission showed sinus tachycardia. Troponin <0.02. Prednisone 40mg PO x 2 Lasix 40mg PO twice a day Sputum culture pending, so far negative Albuterol nebs q4hr PRN Incentive spirometry, Acapella ordered Mucinex, Tessalon pearls PRN cough (3) Bilateral lower extremity edema ICD Codes: R60.0 - Localized edema Status: Resolved Plan: Resolved. Continue compression stockings. Hospital course: PE work-up negative Echo notable for grade 1 diastolic dysfunction; patient counseled on medical management strategies Patient should have lipid panel as outpatient (4) GI bleed ICD Codes: K92.2 - Gastrointestinal hemorrhage, unspecified Status: Acute Plan: Hemoccult positive on admission Known history of PUD with decreased compliance of Prilosec CT abdomen showed bowel gas pattern possibly representing an ileus or gastroenteritis, moderate hepatic steatosis Pantoprazole drip for now, will be discharged with omeprazole PO See anemia plan above (5) History of DVT of lower extremity ICD Codes: Z86.718 - Personal history of other venous thrombosis and embolism Status: Chronic Plan: US bilateral LE negative for DVT CTA negative for PE Fibrinogen mildly elevated; PT/PTT/INR wnl; coagulopathy profile otherwise pending History: Known history of DVT in the past (1.5 and 3 years ago) Was treated with Xarelto for 6 months duration both times Not currently on any anticoagulation (6) Cough ICD Codes: R05 - Cough Status: Resolved Plan: Resolved. (7) Alcohol abuse ICD Codes: F10.10 - Alcohol abuse, uncomplicated Status: Chronic Plan: 12-18 beers per day, last use 06/01 CIWA protocol discontinued today Has never had withdrawal seizures or DTs during previous withdrawal Continue Thiamine, Folic acid, multivitamin (8) FEN Plan: Diet: Heart healthy diet GI Prophylaxis: Pantoprazole for now, transition to omeprazole as outpatient DVT prophylaxis: SCDs PRN meds: Clonidine 0.1mg po q6hr PRN for SBP >180, DBP > 100 Marlyn-Colace BID PRN Zofran 4mg IV q6hr PRN Seen and discussed with Dr. Rodrigez. Discussed with Dr. Rasheed (Adelita De La O MD R2) Problem Qualifiers (1) Anemia: Qualified Codes: D64.9 - Anemia, unspecified (2) GI bleed: Qualified Codes: K92.2 - Gastrointestinal hemorrhage, unspecified Adelita De La O MD R2 Jun 05, 2017 10:33 Hilda Rasheed MD Jun 08, 2017 14:26
--- NOTE | 2017-06-05 16:07 | PD.ONC.PN ---
Subjective Subjective Remarks Afebrile Pt currently getting 1 unit PRBC's. Hoping to be discharged later today Objective Data Date Time Temp Pulse Resp B/P (MAP) Pulse Ox O2 Delivery O2 Flow Rate FiO2 06/05/17 14:02 98.6 89 20 126/72 95 06/05/17 12:00 98.2 94 18 145/69 (94) 06/05/17 08:00 98.5 87 16 134/70 (91) 97 06/05/17 06:36 106 06/05/17 04:00 98.7 78 18 139/65 (89) 94 06/05/17 00:00 97.9 80 18 132/63 (86) 98 06/04/17 22:12 97.6 82 17 138/69 99 06/04/17 21:36 98.2 80 17 132/73 98 06/04/17 19:33 84 06/04/17 16:00 98.0 94 18 130/71 (90) 98 06/05/17 06/05/17 06/05/17 07:00 15:00 23:00 Intake Total 252 ml 5 ml Balance 252 ml 5 ml Result Diagram: 06/05/17 0138 06/05/17 0138 Laboratory Results Laboratory Tests Test 06/05/17 01:38 White Blood Count 7.4 TH/MM3 Red Blood Count 4.23 MIL/MM3 Hemoglobin 7.7 GM/DL Hematocrit 26.4 % Mean Corpuscular Volume 62.3 FL Mean Corpuscular Hemoglobin 18.1 PG Mean Corpuscular Hemoglobin Concent 29.0 % Red Cell Distribution Width 24.2 % Platelet Count 257 TH/MM3 Mean Platelet Volume 8.6 FL Blood Urea Nitrogen 11 MG/DL Creatinine 0.88 MG/DL Random Glucose 78 MG/DL Calcium Level 8.6 MG/DL Sodium Level 140 MEQ/L Potassium Level 3.7 MEQ/L Chloride Level 109 MEQ/L Carbon Dioxide Level 24.5 MEQ/L Anion Gap 7 MEQ/L Estimat Glomerular Filtration Rate 94 ML/MIN Culture Results Microbiology Date/Time Source Procedure Growth Status 06/03/17 07:50 Sputum Expectorated Sputum Gram Stain - Final Complete 06/03/17 07:50 Sputum Expectorated Sputum Sputum Culture - Final HEAVY GROWTH NORMAL RESPIRATORY MICHAEL Complete Administered Medications Medications (Trade) Dose Ordered Sig/Geena Route PRN Reason Start Time Stop Time Status Last Admin Dose Admin Pantoprazole Sodium 80 mg/ Sodium Chloride 100 ml @ 10 mls/hr Q10H IV 06/01/17 16:13 06/04/17 23:49 Folic Acid (Folate) 1 mg DAILY PO 06/01/17 17:30 06/06/17 17:29 06/05/17 10:10 Thiamine HCl (Vitamin B1) 100 mg DAILY PO 06/01/17 17:30 06/05/17 10:06 Multivitamins/ Minerals Therapeutic (Theragran M Tab) 1 tab DAILY PO 06/01/17 17:30 06/06/17 17:29 06/05/17 10:04 Acetaminophen (Tylenol) 500 mg Q4H PRN PO PAIN 1-10 OR TEMP >100.4F 06/01/17 17:30 06/01/17 22:42 Ferrous Sulfate (Ferrous Sulfate) 325 mg BID PO 06/01/17 21:00 06/05/17 10:06 Guaifenesin (Mucinex Er) 600 mg BID PO 06/01/17 21:00 06/05/17 10:10 Furosemide (Lasix) 40 mg BID@09,18 PO 06/03/17 18:00 06/05/17 10:07 Acetaminophen (Tylenol) 650 mg Q4H PRN PO SEE LABEL COMMENTS 06/04/17 15:15 06/04/17 21:31 Diphenhydramine HCl (Benadryl) 25 mg Q4H PRN PO SEE LABEL COMMENTS 06/04/17 15:15 06/04/17 21:31 Objective Remarks GENERAL: Chronically ill appearing middle aged male sitting up in bed getting 1 unit packed cells. SKIN: Warm and dry. HEAD: Normocephalic. EYES: No injection or drainage. NECK: Supple, trachea midline. CARDIOVASCULAR: Regular rate and rhythm without murmurs. RESPIRATORY: Breath sounds equal bilaterally. No accessory muscle use. GASTROINTESTINAL: Abdomen soft, non-tender, nondistended. EXTREMITIES: No cyanosis. NEUROLOGICAL: No obvious focal deficit. Awake, alert, and oriented x3. 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 Transfuse 1 unit PRBC's 2. Tolerated iron infusion OK. Will need further treatment as outpatient. 3. Will request to see pt in followup as outpatient- will reach out to [facility]. Attending Statement The exam, history, and the medical decision-making described in the above note were completed with the assistance of the mid-level provider. I reviewed and agree with the findings presented. I attest that I had a [id number] encounter with the patient on the same day, and personally performed and documented my assessment and findings in the medical record. Eager to go home. Hgb up to 7.7, will transfuse another unit and give him venofer. F/u hematology clinic to have more iron infusion. Problem Qualifiers (1) Anemia: Qualified Codes: D64.9 - Anemia, unspecified Yazmin Mathew Jun 05, 2017 16:07 Fidel Garnett MD Jun 05, 2017 16:17
[2017-06-05] MEDS: PANTOPRAZOLE INJ 80 MG in SODIUM CHLORIDE 0.9% INJ 100 ML IV SCH ×2 (18:22→20:13)
[2017-06-05 23:54] LABS: THROMBIN TIME FOR LA ND sec (13-19)
[2017-06-06] MEDS: FUROSEMIDE 40 MG TAB PO SCH ×2 (00:02→08:50)
[2017-06-06 04:12] VITALS: BP 124/61; PULSE 73; RESP 18; TEMP 98.9; O2SAT 97
[2017-06-06] MEDS: PANTOPRAZOLE INJ 80 MG in SODIUM CHLORIDE 0.9% INJ 100 ML IV SCH (06:13)
[2017-06-06 08:00] VITALS: BP 138/91; PULSE 81; PULSE 91; RESP 16; TEMP 98.4; O2SAT 95
[2017-06-06] MEDS: THIAMINE HCL 100 MG TAB PO SCH (08:50)
[2017-06-06] MEDS: FERROUS SULFATE 325 MG (65 MG ELEMENTAL IRON) TAB PO SCH (08:50)
[2017-06-06] MEDS: guaiFENesin E.R. 600 MG TAB PO SCH (08:50)
[2017-06-06] MEDS: FOLIC ACID 1 MG TAB PO SCH (08:50)
[2017-06-06] MEDS: MULTIVITAMINS/MINERALS THERAPEUTIC TAB PO SCH (08:50)
[2017-06-06] MEDS: ACETAMINOPHEN 325 MG TAB PO PRN (08:58)
[2017-06-06] MEDS ORDERED: IRON SUCROSE INJ 200 MG in SODIUM CHLORIDE 0.9% INJ 100 ML IV ONE (09:00)
[2017-06-06 11:50] LABS: PHOSPHATIDYLSERINE AB IGA LESS THAN 20.0 U/mL (< 20.0); PHOSPHATIDYLSERINE AB IGM LESS THAN 25.0 U/mL (< 25.0)
[2017-06-06 12:00] VITALS: BP 132/85; PULSE 75; RESP 16; TEMP 98.3; O2SAT 98
--- NOTE | 2017-06-06 12:29 | PD.ONC.PN ---
Subjective Subjective Remarks Afebrile Tolerated blood transfusion yesterday Anxious to go home Okay to get 1 more dose of iron sucrose today Objective Data Date Time Temp Pulse Resp B/P (MAP) Pulse Ox O2 Delivery O2 Flow Rate FiO2 06/06/17 08:00 98.4 81 16 138/91 (107) 95 06/06/17 04:12 Room Air 06/06/17 04:12 98.9 73 18 124/61 (82) 97 06/05/17 23:40 Room Air 06/05/17 23:40 98.3 80 18 137/71 (93) 95 06/05/17 20:14 88 06/05/17 19:53 Room Air 06/05/17 19:53 98.3 91 18 153/70 (97) 98 06/05/17 17:55 74 06/05/17 16:00 98.5 91 18 128/75 (92) 97 06/05/17 14:02 98.6 89 20 126/72 95 06/06/17 06/06/17 06/06/17 07:00 15:00 23:00 Intake Total 577 ml Balance 577 ml Result Diagram: 06/05/17 0138 06/05/17 013 Laboratory Results Laboratory Tests Test 06/06/17 11:32 Administered Medications Medications (Trade) Dose Ordered Sig/Geena Route PRN Reason Start Time Stop Time Status Last Admin Dose Admin Pantoprazole Sodium 80 mg/ Sodium Chloride 100 ml @ 10 mls/hr Q10H IV 06/01/17 16:13 06/06/17 06:13 Folic Acid (Folate) 1 mg DAILY PO 06/01/17 17:30 06/06/17 17:29 06/06/17 08:50 Thiamine HCl (Vitamin B1) 100 mg DAILY PO 06/01/17 17:30 06/06/17 08:50 Multivitamins/ Minerals Therapeutic (Theragran M Tab) 1 tab DAILY PO 06/01/17 17:30 06/06/17 17:29 06/06/17 08:50 Acetaminophen (Tylenol) 500 mg Q4H PRN PO PAIN 1-10 OR TEMP >100.4F 06/01/17 17:30 06/01/17 22:42 Ferrous Sulfate (Ferrous Sulfate) 325 mg BID PO 06/01/17 21:00 06/06/17 08:50 Guaifenesin (Mucinex Er) 600 mg BID PO 06/01/17 21:00 06/06/17 08:50 Furosemide (Lasix) 40 mg BID@,18 PO 06/03/17 18:00 06/06/17 08:50 Diphenhydramine HCl (Benadryl) 25 mg Q4H PRN PO SEE LABEL COMMENTS 06/04/17 15:15 06/04/17 21:31 Objective Remarks GENERAL: Chronically ill appearing middle aged male sitting up in bed in no acute distress SKIN: Warm and dry. HEAD: Normocephalic. EYES: No injection or drainage. NECK: Supple, trachea midline. CARDIOVASCULAR: Regular rate and rhythm without murmurs. RESPIRATORY: Breath sounds equal bilaterally. No accessory muscle use. GASTROINTESTINAL: Abdomen soft, non-tender, nondistended. EXTREMITIES: No cyanosis. NEUROLOGICAL: No obvious focal deficit. Awake, alert, and oriented x3. 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 Tolerated blood transfusion OK yesterday 2. We will give one more dose of iron sucrose prior to discharge 3. Vocera sent to new patient referrals for follow-up Attending Statement The exam, history, and the medical decision-making described in the above note were completed with the assistance of the mid-level provider. I reviewed and agree with the findings presented. I attest that I had a [id number] encounter with the patient on the same day, and personally performed and documented my assessment and findings in the medical record. eager to go home. Hgb up to 9 with transfusion. Will give another dose of venofer today. Can be d/c if stable. F/u hematology clinic. Problem Qualifiers (1) Anemia: Qualified Codes: D64.9 - Anemia, unspecified Yazmin Mathew Jun 06, 2017 12:29 Fidel Garnett MD Jun 06, 2017 13:33
[2017-06-06 12:31] LABS: AUTOMATED NEUTROPHIL # 4.7 TH/MM3 (1.8-7.7); BASOPHIL # 0.1 TH/MM3 (0-0.2); BASOPHIL % 0.9 % (0.0-2.0); EOSINOPHIL # 0.4 TH/MM3 (0-0.4); EOSINOPHIL % 4.9 % (0.0-4.0); HEMATOCRIT 29.7 % (39.0-51.0); LYMPH % 21.6 % (9.0-44.0); LYMPHOCYTE # 1.6 TH/MM3 (1.0-4.8); MEAN CELL VOLUME 63.7 FL (80.0-100.0); MEAN CORPUSCULAR HEMOGLOBIN 19.3 PG (27.0-34.0); MEAN CORPUSCULAR HGB CONC 30.3 % (32.0-36.0); MONO % 9.3 % (0.0-8.0); NEUT % 63.3 % (16.0-70.0); PLATELET COUNT 231 TH/MM3 (150-450); RED BLOOD COUNT 4.67 MIL/MM3 (4.50-5.90); RED CELL DISTRIBUTION WIDTH 26.1 % (11.6-17.2); WHITE BLOOD COUNT 7.4 TH/MM3 (4.0-11.0)
[2017-06-06 12:34] LABS: HEMO FLAGS AUTO DIFF
[2017-06-06 13:45] LABS: OVALOCYTES 1+ (NORMAL); SCAN/DIFF AUTO DIFF CONFIRMED
--- NOTE | 2017-06-06 14:24 | HHI.FPPN ---
Subjective Remarks Patient seen and examined. Patient states he is feeling "great today" and is eager to go home. No lightheadedness, dizziness, fatigue, headache, nausea, vomiting, fever, chills, abdominal pain, change in bowel habits, change in urinary habits. (Randal Rodrigez MD R1) Objective Vitals Vital Signs Date Time Temp Pulse Resp B/P (MAP) Pulse Ox O2 Delivery O2 Flow Rate FiO2 06/06/17 12:00 98.3 75 16 132/85 (101) 98 06/06/17 08:00 98.4 81 16 138/91 (107) 95 06/06/17 04:12 Room Air 06/06/17 04:12 98.9 73 18 124/61 (82) 97 06/05/17 23:40 Room Air 06/05/17 23:40 98.3 80 18 137/71 (93) 95 06/05/17 20:14 88 06/05/17 19:53 Room Air 06/05/17 19:53 98.3 91 18 153/70 (97) 98 06/05/17 17:55 74 06/05/17 16:00 98.5 91 18 128/75 (92) 97 I/O 06/05/17 06/05/17 06/05/17 06/06/17 06/06/17 06/06/17 07:00 15:00 23:00 07:00 15:00 23:00 Intake Total 252 ml 5 ml 1470 ml 577 ml Balance 252 ml 5 ml 1470 ml 577 ml Intake Oral 960 ml 480 ml IV Total 110 ml 97 ml Packed Cells 250 ml 400 ml Blood Product IV Normal Saline Flush 2 ml 5 ml # Voids 2 3 4 # Bowel Movements 1 1 (Randal Rodrigez MD R1) Result Diagram: 06/06/17 1132 06/05/17 0138 Objective Remarks GENERAL: Well-developed male in no apparent sitting up in bed. SKIN: Warm and dry. No rashes or ecchymoses. HEAD: Atraumatic. Normocephalic. EYES: Pupils equal and round. No scleral icterus. No injection or drainage. No conjunctival pallor. ENT: No nasal bleeding or discharge. Mucous membranes pink and moist. NECK: Trachea midline. No JVD noted. CARDIOVASCULAR: Regular rate and rhythm. Normal S1 and S2 without murmur. LEs with only trace pitting edema bilaterally, improved. RESPIRATORY: No accessory muscle use. Clear to auscultation. Breath sounds equal bilaterally. No crackles or wheezes. GASTROINTESTINAL: Abdomen soft, non-tender, nondistended. Hepatic and splenic margins not palpable. MUSCULOSKELETAL: Extremities without clubbing, cyanosis. 2+ LE edema. No obvious deformities. NEUROLOGICAL: Awake and alert. No obvious cranial nerve deficits. Motor grossly within normal limits. Normal gait. Strength 5/5 in UEs and LEs. Normal speech. PSYCHIATRIC: Appropriate mood and affect; insight and judgment normal. (Randal Rodrigez MD R1) A/P Assessment and Plan 42 yo M with PMH of PUD with UGI bleed, DVT in R leg who is presenting with 1 month history of progressing BLE edema, SOB, cough found to be anemic and Hemoccult positive on admission. GI consulted for anemia and possible GI bleed. PE work-up negative. Cardiac work-up showing Grade 1 diastolic dysfunction, which patient has been counseled requires medical management and follow-up. Discharge Planning Discharge after CBC today (Randal Rodrigez MD R1) Attending Attestation Patient seen and examined. Case reviewed and discussed Agree with plan of care as discussed with me and documented in the resident note. (Hilda Rasheed MD) Problem List: (1) Anemia ICD Codes: D64.9 - Anemia, unspecified Status: Acute Plan: H/H 9.0 this morning, improved. Symptoms are resolved. Patient possibly discharged today Transitioned PPI to by mouth Has received IV Venofer x2 and 1 unit PRBC today per hematology Hospital Course: H/H on admission 7.6/25.7, Hemoccult positive Tachycardic on admission 100's-110's. This has resolved. GI consulted - EGD and colonoscopy performed showed no obvious source of bleeding. Biopsy is unremarkable Will consider transfusion if Hbg drops below 7. (2) SOB (shortness of breath) ICD Codes: R06.02 - Shortness of breath Status: Resolved Plan: Resolved, possibly related to acute blood loss anemia but given source has not been identified, the SOB may have been due to fluid overload We'll continue Lasix Supportive treatment Hospital Course: Patient reported SOB on exertion, progressive orthopnea over previous month. Smoker of 1-2 packs per day for many years. CXR on admission showed mild atelectasis at lung bases CT chest on admission showed no evidence of embolism, subtle areas of patchy opacification in RML and insula, subtle areas of bronchiectasis of indeterminate age Lower extremity ultrasounds showed no DVT in either leg EKG on admission showed sinus tachycardia. Troponin <0.02. Prednisone 40mg PO x 2 Lasix 40mg PO twice a day Sputum culture pending, so far negative Albuterol nebs q4hr PRN Incentive spirometry, Acapella ordered Mucinex, Tessalon pearls PRN cough (3) Bilateral lower extremity edema ICD Codes: R60.0 - Localized edema Status: Resolved Plan: Resolved. Continue compression stockings. Hospital course: PE work-up negative Echo notable for grade 1 diastolic dysfunction; patient counseled on medical management strategies Patient should have lipid panel as outpatient (4) GI bleed ICD Codes: K92.2 - Gastrointestinal hemorrhage, unspecified Status: Acute Plan: Hemoccult positive on admission Known history of PUD with decreased compliance of Prilosec CT abdomen showed bowel gas pattern possibly representing an ileus or gastroenteritis, moderate hepatic steatosis will be discharged with omeprazole PO See anemia plan above (5) History of DVT of lower extremity ICD Codes: Z86.718 - Personal history of other venous thrombosis and embolism Status: Chronic Plan: US bilateral LE negative for DVT CTA negative for PE Fibrinogen mildly elevated; PT/PTT/INR wnl; coagulopathy profile otherwise pending History: Known history of DVT in the past (1.5 and 3 years ago) Was treated with Xarelto for 6 months duration both times Not currently on any anticoagulation (6) Cough ICD Codes: R05 - Cough Status: Resolved Plan: Resolved. (7) Alcohol abuse ICD Codes: F10.10 - Alcohol abuse, uncomplicated Status: Chronic Plan: 12-18 beers per day, last use 06/01 CIWA protocol discontinued today Has never had withdrawal seizures or DTs during previous withdrawal Continue Thiamine, Folic acid, multivitamin (8) FEN Plan: Diet: Heart healthy diet GI Prophylaxis: Pantoprazole for now, transition to omeprazole as outpatient DVT prophylaxis: SCDs (Randal Rodrigez MD R1) Problem Qualifiers (1) Anemia: Qualified Codes: D64.9 - Anemia, unspecified (2) GI bleed: Qualified Codes: K92.2 - Gastrointestinal hemorrhage, unspecified Faille,Tripp MD R1 Jun 06, 2017 14:24 Hilda Rasheed MD Jun 19, 2017 13:59
--- NOTE | 2017-06-09 10:55 | HHI.DS ---
Discharge Summary Admission Date Jun 02, 2017 at 18:27 Discharge Date: Jun 06, 2017 Admitting Diagnosis GI bleed with symptomatic anemia, edema, SOB (1) Anemia Diagnosis: Principal Plan: H/H 9.0 on morning of discharge. Symptoms are resolved. Transitioned PPI to by mouth Has received IV Venofer x2 and 1 unit PRBC today per hematology Hospital Course: H/H on admission 7.6/25.7, Hemoccult positive Tachycardic on admission 100's-110's. This has resolved. GI consulted - EGD and colonoscopy performed showed no obvious source of bleeding. Biopsy unremarkable ICD Codes: D64.9 - Anemia, unspecified Status: Acute (2) SOB (shortness of breath) Diagnosis: Secondary Plan: Resolved, possibly related to acute blood loss anemia but given source has not been identified, the SOB may have been due to fluid overload We'll continue Lasix as outpt Supportive treatment Hospital Course: Patient reported SOB on exertion, progressive orthopnea over previous month. Smoker of 1-2 packs per day for many years. CXR on admission showed mild atelectasis at lung bases CT chest on admission showed no evidence of embolism, subtle areas of patchy opacification in RML and insula, subtle areas of bronchiectasis of indeterminate age Lower extremity ultrasounds showed no DVT in either leg EKG on admission showed sinus tachycardia. Troponin <0.02. Prednisone 40mg PO x 2 Lasix 40mg PO twice a day Sputum culture pending, so far negative Albuterol nebs q4hr PRN Incentive spirometry, Acapella ordered Mucinex, Tessalon pearls PRN cough ICD Codes: R06.02 - Shortness of breath Status: Resolved (3) Bilateral lower extremity edema Diagnosis: Secondary Plan: Resolved. Continue compression stockings. Hospital course: PE work-up negative Echo notable for grade 1 diastolic dysfunction; patient counseled on medical management strategies Patient should have lipid panel as outpatient ICD Codes: R60.0 - Localized edema Status: Resolved (4) GI bleed Diagnosis: Principal Plan: Hemoccult positive on admission Known history of PUD with decreased compliance of Prilosec CT abdomen showed bowel gas pattern possibly representing an ileus or gastroenteritis, moderate hepatic steatosis will be discharged with omeprazole PO See anemia plan above ICD Codes: K92.2 - Gastrointestinal hemorrhage, unspecified Status: Acute (5) History of DVT of lower extremity Diagnosis: Secondary Plan: US bilateral LE negative for DVT CTA negative for PE Fibrinogen mildly elevated; PT/PTT/INR wnl; coagulopathy profile otherwise pending History: Known history of DVT in the past (1.5 and 3 years ago) Was treated with Xarelto for 6 months duration both times Not currently on any anticoagulation ICD Codes: Z86.718 - Personal history of other venous thrombosis and embolism Status: Chronic (6) Cough Diagnosis: Secondary Plan: Resolved. ICD Codes: R05 - Cough Status: Resolved (7) Alcohol abuse Diagnosis: Secondary Plan: 12-18 beers per day, last use 06/01 CIWA protocol discontinued today Has never had withdrawal seizures or DTs during previous withdrawal Continue Thiamine, Folic acid, multivitamin Canceled on our consultation, patient states he may consider ICD Codes: F10.10 - Alcohol abuse, uncomplicated Status: Chronic Consultants Hematology, gastroenterology Procedures EGD, colonoscopy, IV iron infusion, PRBC 2 Brief History Mr. Viera is a 42 yo M with PMH of PUD with upper GI bleed (11+ years ago), h /o DVT in R leg x2 (1.5 and 3 years ago - was treated for 6 months on Xarelto for each, not anticoagulated currently) who presented to the ED with 1 month history of progressive BLE edema, SOB and cough. Patient states that roughly 1 month ago he began to have BLE swelling and shortly after began to have SOB, worse when laying flat. He began to have a cough with a clear, thick sputum as well. Patient has been inactive recently due to losing his job, GF, and home in [place] and he has mainly been sedentary and drinking 12-18 beers daily. His symptoms worsened after a [address] from [place] to [place], where he and his daughter are temporarily moving in with his sister until he can find a job/ home. Patient states he had Lasix 40mg at home from a very old prescription and tried taking them recently BID but did not see much improvement of his symptoms. He states he has never had an echo done but had multiple CXR's in the past due to pleurisy. Patient denies fevers, chills, CP. In the ED patient was found to be anemic (H/H 7.6/25.7) and Hemoccult positive. Patient states that roughly 11-12 years ago he had an upper GI bleed that lead to hematemesis and had EGD discovering PUD. He had been taking Prilosec daily but has recently been taking it as little as once a week since he no longer has a job and didn't feel he could afford it. Patient also had gastric bypass surgery roughly 15 years ago. He endorses having hemorrhoids. He denies hematemesis, epigastric pain, black/bloody stools. CBC/BMP: 06/06/17 1132 06/05/17 0138 Significant Findings Laboratory Tests Test 06/06/17 11:32 Hemoglobin 9.0 GM/DL (13.0-17.0) Hematocrit 29.7 % (39.0-51.0) Mean Corpuscular Volume 63.7 FL (80.0-100.0) Mean Corpuscular Hemoglobin 19.3 PG (27.0-34.0) Mean Corpuscular Hemoglobin Concent 30.3 % (32.0-36.0) Red Cell Distribution Width 26.1 % (11.6-17.2) Monocytes (%) (Auto) 9.3 % (0.0-8.0) Eosinophils (%) (Auto) 4.9 % (0.0-4.0) Ovalocytes 1+ (NORMAL) Imaging Last Impressions Chest X-Ray 06/01/17 1225 Signed Impressions: Service Date/Time: Thursday, June 01, 2017 13:18 - CONCLUSION: Mild atelectasis at the lung bases. Otherwise, no acute cardiopulmonary abnormality is identified. Navneet Kaur MD Lower Extremity Ultrasound 06/01/17 0000 Signed Impressions: Service Date/Time: Thursday, June 01, 2017 12:47 - CONCLUSION: No DVT is identified within either lower extremity. Navneet Kaur MD CT Angiography 06/01/17 0000 Signed Impressions: Service Date/Time: Thursday, June 01, 2017 14:23 - CONCLUSION: 1. Suboptimal opacification of pulmonary arteries with no evidence of embolism. 2. Subtle areas of patchy opacification in the right middle lobe and insula with subtle areas of bronchiectasis. These findings are of indeterminate age and could be chronic. Randal Nix MD Abdomen/Pelvis CT 06/01/17 0000 Signed Impressions: Service Date/Time: Thursday, June 01, 2017 14:27 - CONCLUSION: 1. There is no ascites. 2. Postoperative changes involving the stomach. There is a nonspecific, nonobstructive bowel gas pattern which may represent an ileus or gastroenteritis. 3. Moderate hepatic steatosis. Randal Nix MD PE at Discharge GENERAL: Well-developed male in no apparent sitting up in bed. SKIN: Warm and dry. No rashes or ecchymoses. HEAD: Atraumatic. Normocephalic. EYES: Pupils equal and round. No scleral icterus. No injection or drainage. No conjunctival pallor. ENT: No nasal bleeding or discharge. Mucous membranes pink and moist. NECK: Trachea midline. No JVD noted. CARDIOVASCULAR: Regular rate and rhythm. Normal S1 and S2 without murmur. LEs with only trace pitting edema bilaterally, improved. RESPIRATORY: No accessory muscle use. Clear to auscultation. Breath sounds equal bilaterally. No crackles or wheezes. GASTROINTESTINAL: Abdomen soft, non-tender, nondistended. Hepatic and splenic margins not palpable. MUSCULOSKELETAL: Extremities without clubbing, cyanosis. 2+ LE edema. No obvious deformities. NEUROLOGICAL: Awake and alert. No obvious cranial nerve deficits. Motor grossly within normal limits. Normal gait. Strength 5/5 in UEs and LEs. Normal speech. PSYCHIATRIC: Appropriate mood and affect; insight and judgment normal. Hospital Course 42-year-old previously healthy male admitted for acute GI bleed and symptomatic anemia with a history significant for GERD, history of significant upper GI bleed, DVT and excessive alcohol use. Initial hemoglobin was approximately 7.5, trended and noted to be stable over the first 24 hours of hospitalization. He did get a workup for DVT and PE which were negative. Initial workup negative for abdominal CT showing no signs of active bleeding. Gastroccult positive, Hemoccult was positive. Gastroenterology team was consulted. EGD and colonoscopy were performed over the first few days of stay which were unremarkable, showing no source of bleeding. Workup for coagulopathy was initiated given positive family history (father) of coagulopathy. It showed a mildly elevated fibrinogen and mildly decreased protein C activity. He was noted to be iron deficient per low iron levels. He is noted also to have a possible component of absorption due to previous gastric bypass surgery. Hematology was consulted, recommended and performed IV iron infusion during hospitalization. He did receive 2 units of PRBCs for symptom improvement and hemoglobin was adequately responsive. Patient was discharged on 06/06 in stable condition, it is noted that he is to follow up with GI as well as hematology as an outpatient as he may continue to require IV iron periodically and he also needs a follow-up coagulopathy studies initiated as an inpatient. He is to continue PPI as outpatient. He was counseled thoroughly regarding the risk of continued alcohol use and he endorsed he may consider quitting as an outpatient but notes he is probably not ready yet. He was discharged in stable condition. Pt Condition on Discharge: Stable Discharge Disposition: Discharge Home Discharge Instructions DIET: Follow Instructions for: Heart Healthy Diet Activities you can perform: Regular-No Restrictions Follow up Referrals: Gastroenterology - 1 Week with Viry Melendez MD Genetics Hematology - 1 Week PCP Follow-up - 1 Week New Orders: BASIC METABOLIC PROF - 3-5 Days CBC NO DIFF - 3-5 Days New Medications: Omeprazole (Omeprazole) 40 Mg Cap 40 MG PO DAILY, #30 CAP 0 Refills Furosemide (Furosemide) 40 Mg Tab 40 MG PO BID@09,18, #60 TAB Adelita De La O MD R2 Jun 09, 2017 10:55
== END 2017-06-06 17:08 | disposition home or self-care (01) | DRG 378 ==
LOC: NEPE 12:10 → INTOOBSV 16:06 → NEDA 16:06 → N04B 18:34 → OBSVTOIN 06-02 18:27
PROVIDERS: ADMIT Family Medicine; ATTEND Family Medicine
PROC: 0DB68ZX Excision of Stomach, Via Natural or Artificial Opening Endoscopic, Diagnostic (ICD-10-PCS; 2017-06-03)
PROC: 0DJD8ZZ Inspection of Lower Intestinal Tract, Via Natural or Artificial Opening Endoscopic (ICD-10-PCS; 2017-06-04)
PROC: 30233N1 Transfusion of Nonautologous Red Blood Cells into Peripheral Vein, Percutaneous Approach (ICD-10-PCS; principal; 2017-06-04 11:53)
DX: K92.2 Gastrointestinal hemorrhage, unspecified (principal); D62 Acute posthemorrhagic anemia; I50.30 Unspecified diastolic (congestive) heart failure; K76.0 Fatty (change of) liver, not elsewhere classified; K91.2 Postsurgical malabsorption, not elsewhere classified; F10.10 Alcohol abuse, uncomplicated; D50.9 Iron deficiency anemia, unspecified; J98.11 Atelectasis; K95.89 Other complications of other bariatric procedure; F17.200 Nicotine dependence, unspecified, uncomplicated; M79.89 Other specified soft tissue disorders; Z98.84 Bariatric surgery status; Z87.11 Personal history of peptic ulcer disease; R00.0 Tachycardia, unspecified; Z86.718 Personal history of other venous thrombosis and embolism; K64.9 Unspecified hemorrhoids; R09.82 Postnasal drip; Z91.14 Patient's other noncompliance with medication regimen; J47.9 Bronchiectasis, uncomplicated; K21.9 Gastro-esophageal reflux disease without esophagitis; Y83.8 Other surgical procedures as the cause of abnormal reaction of the patient, or of later complication, without mention of misadventure at the time of the procedure; Y73.3 Surgical instruments, materials and gastroenterology and urology devices (including sutures) associated with adverse incidents; Y92.009 Unspecified place in unspecified non-institutional (private) residence as the place of occurrence of the external cause
CPT/HCPCS: 36430; 71010; 71275; 74177; 80048; 80053; 80061; 80307; 81240; 81241; 81291; 82550; 82607; 82728; 82746; 82948; 83090; 83540; 83550; 83615; 83735; 83880; 84100; 84484; 85014; 85018; 85025; 85027; 85044; 85060; 85240; 85300; 85303; 85306; 85307; 85384; 85610; 85613; 85730; 86146; 86147; 86148; 86850; 86900; 86901; 86920; 87070; 87205; 88305; 88307; 88312; 93005; 93306; 93970; 94150; 94667; 94668; 96374; 96375; 96376; C9113; G0378; J1756; J1940; J2250; J7040; J7050; J7120; J7512; P9016; Q9967